=== PATIENT | female | born 1980 | race Caucasian/White ===

== ENCOUNTER 2017-02-24 23:15 | Emergency (ER) | payer SELFPAY ==
[~2017-02-24] VITALS: Ht 167.6 cm; Wt 86.2 kg
[~2017-02-24 23:15] MED LIST: BUSPAR 10MG TAB10 MG PO; DARVOCET-N 1001 EACH PO; EFFEXOR XR150 MG PO; FLEXERIL10 M1 PO; HYDROCODONE1 TABLE1 PO; IBU800 M1 PO; LORTAB 5/500 501 TAB PO; LORTAB 500 MG-71 TAB; NO HOME MEDS; PAXIL20 MG PO; PHENERGAN 25MG.25 M1 PO; PREDNISONE 10MG10 MG PO; PROVERA 10MG TA10 MG PO; SEPTRA DS 800 M1 TAB PO; TRAMADOL 50MG T50 MG PO; VIBRAMYCIN 100100 MG PO; VICODIN 5/500 T1 TAB PO; VICODIN 7.5/501 EACH PO; VISTARIL25 MG PO; VOLTAREN75 MG PO; ZITHROMAX Z-PA250 M2 PO; ZYRTEC 10MG TAB10 MG PO
--- NOTE | 2017-02-24 23:35 | Emergency Room Report ---
History of Present Illness Time Seen by MD Samaniego Presenting Problem in Triage Pt arrived:Walked Presenting Problem:REPORTS PAIN IN CHANDLER LEGS, IS C/O SPOTS ON HER LEGS. REPORTS THAT IT STARTED LAST NIGHT AFTER SHE GOT OFF HER SHIFT AT [facility]. SMALL BLISTERS NOTED. BILATERAL FEET SWOLLEN. 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 N Clinical Suspician of Infection? N Mental Status: 1 - Regular (Normal Baseline) Sepsis Risk:Low Sepsis Risk Have you (or family members/close friends) recently traveled outside the [place]? N If Yes, where/when: Have you had exposure to infectious disease within the past month? N TB? Other? Specify: Comment The patient complains of pain, swelling, rash and lesions on her lower legs and feet bilaterally for 2 days. She has an erythematous patchy rash, most intense around her toes. The only itching she has is around the toes. She has severe pain in her feet when she tries to bear weight. No fever. No new medicines. He took ibuprofen today for her symptoms, otherwise on no medications. 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 She got out of residential 2 weeks ago. She works at [employer], started back after release. New boots bought 2 wks ago. However, states wears same brand of boots at home without problems. She is on her feet all of the time in the past 2 weeks since starting back to work. He did the same type of work in the past without problems. No exposures to liquids or chemicals. ALLERGIES Coded Allergies: cephalexin (Severe, SWELLS THROAT 02/24/17) Fish Containing Products (I-HIVES 02/24/17) orange juice (I-HIVES 02/24/17) codeine (MUSCLE SPASMS 02/24/17) Uncoded Allergies: BANDAIDS (RASH/SWELLING 11/09/11) History Medical History General CAD? No Angina: No [place]: No Hypertension? No Hyperlipidemia? No CHF? No DVT? No PE? No COPD? No Asthma? No Anemia? No GERD? No Gastric ulcers? No GI Bleed? No Hernia? No Thyroid Problems? No Hypothyroidism? No CVA? No Seizures? No Diabetes? No Renal Insuffiency? No End Stage Renal Disease? No UTI? Yes Stones? Yes BPH? No GB Disease: No Nephritic Syndrome? No Asplenia? No Hepatitis? No Sickle Cell Disease? No Arthritis? No Migraines? No Cataracts? No Glaucoma? No MRSA? No HIV? No TB? No Anxiety? No Depression? No Cancer? No More? 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 N/A Family History Family Hx Diabetes No CAD Yes Hypertension Yes Hyperlipidemia Yes Cancer Yes TB No Social History Smoking Hx Smoker: Current Every Day Smoker Tobacco: Yes Type Cigarettes Packs/day < 1 Pack Alcohol Alcohol: No Review of Systems All Other Systems Reviewed and Negative Constitutional denies fever Musculoskeletal joint pain (feet) Skin see HPI, change in color, lesions, rash Physical Exam Vital Signs Vital Signs Date Time Temp Pulse Resp B/P Pulse O2 O2 Flow FiO2 Ox Delivery Rate 02/25 0141 98.1 83 18 127/69 100 / 0008 83 18 127/69 100 / 0007 20 02/24 2317 98.1 87 18 151/93 99 General Appearance normal appearance Ear, Nose, Throat hearing grossly normal, normal ENT inspection Respiratory Status No: respiratory distress. Lung Sounds bilateral: normal breath sounds, lungs clear. Cardiovascular normal exam, regular rate/rhythm, no peripheral edema, no gallop, no JVD, no murmur, no rub, normal peripheral pulses Gastrointestinal normal bowel sounds, normal exam, non tender, no organomegaly Extremities generalized edema of lower extremities from approximately the mid shaft of the lower leg down to the toes, mild. Patchy erythema in the same locations. Most intense around the toes of her LEFT foot., there are some discrete maculopapular lesions as well. One appears to be a tiny 1 mm pustule. otherwise, this does not appear to be a pustular rash., there is a vesicle on the plantar aspect of each foot at the base of the great toe, symmetric in location and approximate size. Each is about 3 cm by 1 cm. The one on the RIGHT foot was incised and drained and cultured.Only clear fluid is present. Neurologic alert, no motor/sensory deficits Skin no petechiae or purpura., no findings to suggest tinea between toes. Medical Decision Making LABS/Meds/Orders Pt receiving controlled substance in ED? Yes Francesco was queried for this patient? Yes Comment [id number] 0 rxs. Results/Orders Laboratory Tests 02/24/172337: Uric Acid 2.8 02/24/172337: Sodium 140, Potassium 3.5, Chloride 105, Carbon Dioxide 27, BUN 14, Creatinine 0.8, Estimated Creat Clear 134, Estimated GFR (MDRD) 82, Glucose 90, Calcium 8.6 , Total Bilirubin 0.4, AST 28, ALT 48, Alkaline Phosphatase 61, Total Protein 7.8, Albumin 4.1, Globulin 3.7 H, Albumin/Globulin Ratio 1.1, WBC 10.2, RBC 4.53, Hgb 13.4, Hct 39.6, MCV 87.4, RDW 13.2, Plt Count 348, MPV 8.1, Gran % 65.3, Gran # 6.6, Lymphocytes % 28.4, Monocytes % 2.8, Eosinophils % 2.9, Basophils % 0.6, Lymphocytes # 2.9, Monocytes # 0.3, Eosinophils # 0.3, Basophils # 0.1, PUBS MCHC 33.9, ESR 12, MCH 29.6 Current Medication Orders Sig/Crystal Start time Last Medication Dose Route Stop Time Status Admin Tramadol HCl 0 .STK-MED ONE 02/25 118 DCr PO Methylprednisolone 125 MG ONCE ONE 02/25 115 DC 02/25 Sodium Succinate IV 02/26 116 0135 Tramadol HCl 1 LEE ONCE ONE 02/25 115 DCr 02/25 PO 02/26 116 0120 Methylprednisolone 0 .STK-MED ONE 02/257 DC Sodium Succinate .ROUTE Ondansetron HCl 0 .STK-MED ONE 02/25 7 DC .ROUTE Morphine Sulfate 0 .STK-MED ONE 02/25 6 DCr .ROUTE Morphine Sulfate 4 MG ONCE ONE 02/24 2345 DCr 02/25 IV 02/24 Ondansetron HCl 4 MG ONCE ONE 02/24 2345 DC 02/25 IV 02/24 Sodium Chloride 10 ML PRN PRN 09/15 2330 DCD IV 02/25 2327 Orders Procedure Date/time Status CULTURE, WOUND 02/24 2346 Active CULTURE, BLOOD 02/24 2346 Active LACTIC ACID 02/24 2346 Active URIC ACID 02/24 2329 Complete IV SALINE LOCK 02/25 2328 Active SED RATE 02/25 2328 Complete CBC WITH AUTO DIFF 02/25 2328 Complete CHEM 12 PROFILE 02/25 2328 Complete Departure Departure Disposition DC Home or Self Care(routine) Clinical Impression Primary Impression: Edema, peripheral Secondary Impressions: Bilateral leg and foot pain, Skin eruption, Vesicles Condition STABLE Additional Instructions You are being provided with a list of physicians available for follow-up of your condition. Please call a physician on this list to arrange a follow-up appointment as soon as possible. Off work 02/25/17 through 02/27/17. Rest and elevate your legs, keep skin clean and dry. Follow-up recheck on 02/27/17, primary care provider or urgent treatment center. Additional instructions for EXTREMITY PAIN: See your physician as soon as possible for further evaluation. Return to an emergency department immediately if you have uncontrollable pain, fever, loss of feeling or inability to move your injured extremity. Prescriptions Current Visit Scripts Methylprednisolone (Medrol Dose Lee) 4 MG PO UD #1 LEE TAKE DIRECTED ON PACKAGING ED Critical Care Critical Care No at 0153
--- NOTE | 2017-02-24 23:35 | Emergency Room Report ---
History of Present Illness Time Seen by MD Samaniego Presenting Problem in Triage Pt arrived:Walked Presenting Problem:REPORTS PAIN IN CHANDLER LEGS, IS C/O SPOTS ON HER LEGS. REPORTS THAT IT STARTED LAST NIGHT AFTER [facility]. SMALL BLISTERS NOTED. BILATERAL FEET SWOLLEN. 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 N Clinical Suspician of Infection? N Mental Status: 1 - Regular (Normal Baseline) Sepsis Risk:Low Sepsis Risk Have you (or family members/close friends) recently traveled outside the [place]? N If Yes, where/when: Have you had exposure to infectious disease within the past month? N TB? Other? Specify: Comment The patient complains of pain, swelling, rash and lesions on her lower legs and feet bilaterally for 2 days. She has an erythematous patchy rash, most intense around her toes. The only itching she has is around the toes. She has severe pain in her feet when she tries to bear weight. No fever. No new medicines. He took ibuprofen today for her symptoms, otherwise on no medications. 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 She got out of [facility]. She works at [employer], started back after release. New boots bought 2 wks ago. However, states wears same brand of boots at home without problems. She is on her feet all of the time in the past 2 weeks since starting back to work. He did the same type of work in the past without problems. No exposures to liquids or chemicals. ALLERGIES Coded Allergies: cephalexin (Severe, SWELLS THROAT 02/24/17) Fish Containing Products (I-HIVES 02/24/17) orange juice (I-HIVES 02/24/17) codeine (MUSCLE SPASMS 02/24/17) Uncoded Allergies: BANDAIDS (RASH/SWELLING 11/09/11) History Medical History General CAD? No Angina: No [place]: No Hypertension? No Hyperlipidemia? No CHF? No DVT? No PE? No COPD? No Asthma? No Anemia? No GERD? No Gastric ulcers? No GI Bleed? No Hernia? No Thyroid Problems? No Hypothyroidism? No CVA? No Seizures? No Diabetes? No Renal Insuffiency? No End Stage Renal Disease? No UTI? Yes Stones? Yes BPH? No GB Disease: No Nephritic Syndrome? No Asplenia? No Hepatitis? No Sickle Cell Disease? No Arthritis? No Migraines? No Cataracts? No Glaucoma? No MRSA? No HIV? No TB? No Anxiety? No Depression? No Cancer? No More? 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 Family History Family Hx Diabetes No CAD Yes Hypertension Yes Hyperlipidemia Yes Cancer Yes TB No Social History Smoking Hx Smoker: Current Every Day Smoker Tobacco: Yes Type Cigarettes Packs/day < 1 Pack Alcohol Alcohol: No Review of Systems All Other Systems Reviewed and Negative Constitutional denies fever Musculoskeletal joint pain (feet) Skin see HPI, change in color, lesions, rash Physical Exam Vital Signs Vital Signs Date Time Temp Pulse Resp B/P Pulse O2 O2 Flow FiO2 Ox Delivery Rate 02/25 0141 98.1 83 18 127/69 100 / 0008 83 18 127/69 100 / 0007 20 02/24 2317 98.1 87 18 151/93 99 General Appearance normal appearance Ear, Nose, Throat hearing grossly normal, normal ENT inspection Respiratory Status No: respiratory distress. Lung Sounds bilateral: normal breath sounds, lungs clear. Cardiovascular normal exam, regular rate/rhythm, no peripheral edema, no gallop, no JVD, no murmur, no rub, normal peripheral pulses Gastrointestinal normal bowel sounds, normal exam, non tender, no organomegaly Extremities generalized edema of lower extremities from approximately the mid shaft of the lower leg down to the toes, mild. Patchy erythema in the same locations. Most intense around the toes of her LEFT foot., there are some discrete maculopapular lesions as well. One appears to be a tiny 1 mm pustule. otherwise, this does not appear to be a pustular rash., there is a vesicle on the plantar aspect of each foot at the base of the great toe, symmetric in location and approximate size. Each is about 3 cm by 1 cm. The one on the RIGHT foot was incised and drained and cultured.Only clear fluid is present. Neurologic alert, no motor/sensory deficits Skin no petechiae or purpura., no findings to suggest tinea between toes. Medical Decision Making LABS/Meds/Orders Pt receiving controlled substance in ED? Yes Francesco was queried for this patient? Yes Comment [id number] 0 rxs. Results/Orders Laboratory Tests 02/24/172337: Uric Acid 2.8 02/24/172337: Sodium 140, Potassium 3.5, Chloride 105, Carbon Dioxide 27, BUN 14, Creatinine 0.8, Estimated Creat Clear 134, Estimated GFR (MDRD) 82, Glucose 90, Calcium 8.6 , Total Bilirubin 0.4, AST 28, ALT 48, Alkaline Phosphatase 61, Total Protein 7.8, Albumin 4.1, Globulin 3.7 H, Albumin/Globulin Ratio 1.1, WBC 10.2, RBC 4.53, Hgb 13.4, Hct 39.6, MCV 87.4, RDW 13.2, Plt Count 348, MPV 8.1, Gran % 65.3, Gran # 6.6, Lymphocytes % 28.4, Monocytes % 2.8, Eosinophils % 2.9, Basophils % 0.6, Lymphocytes # 2.9, Monocytes # 0.3, Eosinophils # 0.3, Basophils # 0.1, PUBS MCHC 33.9, ESR 12, MCH 29.6 Current Medication Orders Sig/Crystal Start time Last Medication Dose Route Stop Time Status Admin Tramadol HCl 0 .STK-MED ONE 02/25 118 DCr PO Methylprednisolone 125 MG ONCE ONE 02/25 115 DC 02/25 Sodium Succinate IV 02/26 116 0135 Tramadol HCl 1 LEE ONCE ONE 02/25 115 DCr 02/25 PO 02/26 116 0120 Methylprednisolone 0 .STK-MED ONE 02/257 DC Sodium Succinate .ROUTE Ondansetron HCl 0 .STK-MED ONE 02/25 7 DC .ROUTE Morphine Sulfate 0 .STK-MED ONE 02/25 6 DCr .ROUTE Morphine Sulfate 4 MG ONCE ONE 02/24 2345 DCr 02/25 IV 02/24 Ondansetron HCl 4 MG ONCE ONE 02/24 2345 DC 02/25 IV 02/24 Sodium Chloride 10 ML PRN PRN 09/15 2330 DCD IV 02/25 2327 Orders Procedure Date/time Status CULTURE, WOUND 02/24 2346 Active CULTURE, BLOOD 02/24 2346 Active LACTIC ACID 02/24 2346 Active URIC ACID 02/24 2329 Complete IV SALINE LOCK 02/25 2328 Active SED RATE 02/25 2328 Complete CBC WITH AUTO DIFF 02/25 2328 Complete CHEM 12 PROFILE 02/25 2328 Complete Departure Departure Disposition DC Home or Self Care(routine) Clinical Impression Primary Impression: Edema, peripheral Secondary Impressions: Bilateral leg and foot pain, Skin eruption, Vesicles Condition STABLE Additional Instructions You are being provided with a list of physicians available for follow-up of your condition. Please call a physician on this list to arrange a follow-up appointment as soon as possible. Off work 02/25/17 through 02/27/17. Rest and elevate your legs, keep skin clean and dry. Follow-up recheck on 02/27/17, primary care provider or urgent treatment center. Additional instructions for EXTREMITY PAIN: See your physician as soon as possible for further evaluation. Return to an emergency department immediately if you have uncontrollable pain, fever, loss of feeling or inability to move your injured extremity. Prescriptions Current Visit Scripts Methylprednisolone (Medrol Dose Lee) 4 MG PO UD #1 LEE TAKE DIRECTED ON PACKAGING ED Critical Care Critical Care No at 0153
[2017-02-24 23:43] LABS: HEMOGLOBIN 13.4 g/dL (12.2-16.2); LYMPH # 2.9 K/mm3 (0.7-4.5); LYMPH % 28.4 % (10-50.0)
[2017-02-25] MEDS ORDERED: MEDROL 4MG. DOSE4 MG PO (01:15)
[2017-02-25 01:41] VITALS: BP 127/69
[2017-03-01] MEDS ORDERED: MECLIZINE 25MG25 MG PO (16:44)
== END 2017-02-25 01:42 | disposition home or self-care (01) ==
LOC: ER 23:15
PROVIDERS: Emergency Medicine
DX: R60.9 Edema, unspecified (principal); R23.8 Other skin changes; F17.210 Nicotine dependence, cigarettes, uncomplicated
CPT/HCPCS: J2405

== ENCOUNTER 2017-03-01 15:36 | Emergency (ER) | payer SELFPAY ==
[~2017-03-01] VITALS: Ht 167.6 cm; Wt 88.9 kg
--- NOTE | 2017-03-01 16:32 | Urgent Treatment Center Report ---
History of Present Issue Date/Time Seen by Provider 03/01/17 5445 Visit Reason Pt arrived:Walked Presenting Problem:PT STATES SHE GOT DIZZY AT WORK LAST NIGHT. WAS SEEN BY [facility] STATES THIS HAS GONE ON FOR 3 DAYS. SEEN AT ER LAST MONDAY. Location if Accident: Onset of symptoms date/time:/ or onset unknown for:MEDICAL HX UNKNOWN Have you (or family members/close friends) recently traveled outside the [place]? N If Yes, where/when: Have you had exposure to infectious disease within the past month? TB? Other? Specify: Patient state that she has allergy problems and has been having problems with her ears. 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 State that they took her to [facility] at [facility] and they wanted her to come and be seen by someone else. ALLERGIES Coded Allergies: cephalexin (Severe, SWELLS THROAT 02/24/17) Fish Containing Products (I-HIVES 02/24/17) orange juice (I-HIVES 02/24/17) codeine (MUSCLE SPASMS 02/24/17) Uncoded Allergies: BANDAIDS (RASH/SWELLING 11/09/11) History Medical History General CAD? No Angina: No [place]: No Hypertension? No Hyperlipidemia? No CHF? No DVT? No PE? No COPD? No Asthma? No Anemia? No GERD? No Gastric ulcers? No GI Bleed? No Hernia? No Thyroid Problems? No Hypothyroidism? No CVA? No Seizures? No Diabetes? No Renal Insuffiency? No UTI? Yes Stones? Yes BPH? No GB Disease: No Nephritic Syndrome? No Asplenia? No Hepatitis? No Sickle Cell Disease? No Arthritis? No Migraines? No Cataracts? No Glaucoma? No MRSA? No HIV? No TB? No Anxiety? No Depression? No Cancer? No More? No Immunization HX DT/Tetanus 5-10 YRS Flu REFUSES Pneumonia NEVER Surgical Hx Previous Surgery?Y T&A D&C X 3 EGD Tubal Ligation WISDOM TEETH PARTIAL HYSTERECTOMY LAPAROSCOPY-REMOVED ADHES IONS L FALLOPIAN TUBE/OVARY Family History Family HX Diabetes No CAD Yes Hypertension Yes Hyperlipidemia Yes Cancer Yes TB No Social History Smoking Hx Smoker: Current Every Day Smoker Tobacco: Yes Type Cigarettes Packs/day < 1 Pack Alcohol Alcohol: No Review of Systems All Other Systems Reviewed and Negative Physical Exam Vital Signs Vital Signs Date Time Temp Pulse Resp B/P Pulse O2 O2 Flow FiO2 Ox Delivery Rate 03/01 1638 97.9 104 20 120/85 99 03/01 1556 97.9 104 20 120/85 99 General Appearance normal appearance, WD/WN, no apparent distress Ear, Nose, Throat fluid noted left ear Respiratory Status Yes: trachea midline, chest symmetrical, non tender chest. No: respiratory distress. 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 No Results/Orders Current Medication Orders Sig/Crystal Start time Last Medication Dose Route Stop Time Status Admin Meclizine HCl 25 MG ONCE ONE 03/01 1615 DC 03/01 PO 03/01 1616 1609 Meclizine HCl 0 .STK-MED ONE 03/01 1609 DC .ROUTE Progress [facility] Progress Notes Comment Patient state that she feel much better after medication and that dizziness is almost gone Departure Departure Time of Disposition 1642 Disposition DC Home or Self Care(routine) Clinical Impression Primary Impression: Vertigo Condition STABLE Patient Instructions DI for Benign Paroxysmal Positional Vertigo, DI for Vertigo Additional Instructions Find familly doctor and follow up for further treatment Becarefull starting new medication Make position changes slowly until medication begans to work well If you continue to have issues or worsen go straight to the ER Discharge Counseling Counseled pt/family regarding diagnosis, medications/RX, home care, follow up needs Prescriptions Current Visit Scripts MECLIZINE HCL (Meclizine 25MG) 25 MG PO BID #60 TABLET at 1644
--- NOTE | 2017-03-01 16:32 | Urgent Treatment Center Report ---
History of Present Issue Date/Time Seen by Provider 03/01/17 3935 Visit Reason Pt arrived:Walked Presenting Problem:PT STATES SHE GOT DIZZY AT WORK LAST NIGHT. WAS SEEN BY [facility] STATES THIS HAS GONE ON FOR 3 DAYS. SEEN AT ER LAST MONDAY. Location if Accident: Onset of symptoms date/time:/ or onset unknown for:MEDICAL HX UNKNOWN Have you (or family members/close friends) recently traveled outside the [place]? N If Yes, where/when: Have you had exposure to infectious disease within the past month? TB? Other? Specify: Patient state that she has allergy problems and has been having problems with her ears. 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 State that they took her to [facility] at [facility] and they wanted her to come and be seen by someone else. ALLERGIES Coded Allergies: cephalexin (Severe, SWELLS THROAT 02/24/17) Fish Containing Products (I-HIVES 02/24/17) orange juice (I-HIVES 02/24/17) codeine (MUSCLE SPASMS 02/24/17) Uncoded Allergies: BANDAIDS (RASH/SWELLING 11/09/11) History Medical History General CAD? No Angina: No [place]: No Hypertension? No Hyperlipidemia? No CHF? No DVT? No PE? No COPD? No Asthma? No Anemia? No GERD? No Gastric ulcers? No GI Bleed? No Hernia? No Thyroid Problems? No Hypothyroidism? No CVA? No Seizures? No Diabetes? No Renal Insuffiency? No UTI? Yes Stones? Yes BPH? No GB Disease: No Nephritic Syndrome? No Asplenia? No Hepatitis? No Sickle Cell Disease? No Arthritis? No Migraines? No Cataracts? No Glaucoma? No MRSA? No HIV? No TB? No Anxiety? No Depression? No Cancer? No More? No Immunization HX DT/Tetanus 5-10 YRS Flu REFUSES Pneumonia NEVER Surgical Hx Previous Surgery?Y T&A D&C X 3 EGD Tubal Ligation WISDOM TEETH PARTIAL HYSTERECTOMY LAPAROSCOPY-REMOVED ADHES IONS L FALLOPIAN TUBE/OVARY Family History Family HX Diabetes No CAD Yes Hypertension Yes Hyperlipidemia Yes Cancer Yes TB No Social History Smoking Hx Smoker: Current Every Day Smoker Tobacco: Yes Type Cigarettes Packs/day < 1 Pack Alcohol Alcohol: No Review of Systems All Other Systems Reviewed and Negative Physical Exam Vital Signs Vital Signs Date Time Temp Pulse Resp B/P Pulse O2 O2 Flow FiO2 Ox Delivery Rate 03/01 1638 97.9 104 20 120/85 99 03/01 1556 97.9 104 20 120/85 99 General Appearance normal appearance, WD/WN, no apparent distress Ear, Nose, Throat fluid noted left ear Respiratory Status Yes: trachea midline, chest symmetrical, non tender chest. No: respiratory distress. 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 No Results/Orders Current Medication Orders Sig/Crystal Start time Last Medication Dose Route Stop Time Status Admin Meclizine HCl 25 MG ONCE ONE 03/01 1615 DC 03/01 PO 03/01 1616 1609 Meclizine HCl 0 .STK-MED ONE 03/01 1609 DC .ROUTE Progress [facility] Progress Notes Comment Patient state that she feel much better after medication and that dizziness is almost gone Departure Departure Time of Disposition 1642 Disposition DC Home or Self Care(routine) Clinical Impression Primary Impression: Vertigo Condition STABLE Patient Instructions DI for Benign Paroxysmal Positional Vertigo, DI for Vertigo Additional Instructions Find familly doctor and follow up for further treatment Becarefull starting new medication Make position changes slowly until medication begans to work well If you continue to have issues or worsen go straight to the ER Discharge Counseling Counseled pt/family regarding diagnosis, medications/RX, home care, follow up needs Prescriptions Current Visit Scripts MECLIZINE HCL (Meclizine 25MG) 25 MG PO BID #60 TABLET at 1644
[2017-03-01 16:38] VITALS: BP 120/85
== END 2017-03-01 16:49 | disposition home or self-care (01) ==
LOC: UTC 15:36
DX: R42 Dizziness and giddiness (principal); F17.210 Nicotine dependence, cigarettes, uncomplicated

== ENCOUNTER 2017-03-24 20:31 | Emergency (ER) | payer MEDICAID ==
[~2017-03-24] VITALS: Ht 167.6 cm; Wt 90.7 kg
[~2017-03-24 20:31] MED LIST changes: +MECLIZINE 25MG25 MG PO; +MEDROL 4MG. DOSE4 MG PO
--- NOTE | 2017-03-24 20:49 | [facility] Report ---
History of Present Issue Date/Time Seen by Provider 03/24/172047 Visit Reason Pt arrived:Walked Presenting Problem:PT C/O N/V/D SINCE YESTERDAY Location if Accident: Onset of symptoms date/time:/ or onset unknown for:MEDICAL HX UNKNOWN Have you (or family members/close friends) recently traveled outside the [place]? N If Yes, where/when: Have you had exposure to infectious disease within the past month? TB? Other? Specify: Patient presents with mother with c/o n/v/d, dizziness, lightheadedness and shakiness that started 1-2 days ago but has worsened today. Denies fever, c/o chills. Denies recent exposure to known ill persons. Has been drinking Gatorade. Source patient, family Exam Limitations no limitations ALLERGIES Coded Allergies: cephalexin (Severe, SWELLS THROAT 02/24/17) Fish Containing Products (I-HIVES 02/24/17) orange juice (I-HIVES 02/24/17) codeine (MUSCLE SPASMS 02/24/17) Uncoded Allergies: BANDAIDS (RASH/SWELLING 11/09/11) Home Medications Active Scripts MECLIZINE HCL (Meclizine 25MG) 25 MG PO BID #60 TABLET Prov: 03/01/17 History Medical History General CAD? No Angina: No OR: No Hypertension? No Hyperlipidemia? No CHF? No DVT? No PE? No COPD? No Asthma? No Anemia? No GERD? No Gastric ulcers? No GI Bleed? No Hernia? No Thyroid Problems? No Hypothyroidism? No CVA? No Seizures? No Diabetes? No Renal Insuffiency? No UTI? Yes Stones? Yes BPH? No GB Disease: No Nephritic Syndrome? No Asplenia? No Hepatitis? No Sickle Cell Disease? No Arthritis? No Migraines? No Cataracts? No Glaucoma? No MRSA? No HIV? No TB? No Anxiety? No Depression? No Cancer? No More? No Immunization HX DT/Tetanus 5-10 YRS Flu REFUSES Pneumonia NEVER Surgical Hx Previous Surgery?Y T&A D&C X 3 EGD Tubal Ligation WISDOM TEETH PARTIAL HYSTERECTOMY LAPAROSCOPY-REMOVED ADHES IONS L FALLOPIAN TUBE/OVARY Family History Family HX Diabetes No CAD Yes Hypertension Yes Hyperlipidemia Yes Cancer Yes TB No Social History Smoking Hx Smoker: Current Every Day Smoker Tobacco: Yes Type Cigarettes Packs/day < 1 Pack Alcohol Alcohol: No Review of Systems All Other Systems Reviewed and Negative Constitutional chills, denies fever, malaise, weakness Respiratory denies cough, denies shortness of breath, denies wheezing Cardiovascular denies chest pain, denies palpitations Gastrointestinal abdominal pain, diarrhea, nausea, vomiting Skin denies rash Physical Exam Vital Signs Vital Signs Date Time Temp Pulse Resp B/P Pulse O2 O2 Flow FiO2 Ox Delivery Rate 03/24 2130 97.9 82 18 122/77 100 03/24 2042 97.9 82 18 122/77 100 General Appearance normal appearance, WD/WN Neck non-tender, supple, full range of motion Respiratory Status Yes: chest symmetrical. No: respiratory distress. Lung Sounds bilateral: normal breath sounds. Cardiovascular normal exam, regular rate/rhythm, no peripheral edema, no murmur Gastrointestinal soft, abnormal bowel sounds (hypoactive), no guarding, no rebound, tenderness (generalized) Neurologic alert, normal exam, no motor/sensory deficits, oriented x 3 Mental status normal mood/affect Skin intact, normal color, warm/dry (pale) Medical Decision Making LABS/Meds/Orders Pt receiving controlled substance in ED? No Results/Orders Laboratory Tests 03/24/172126: POC Glucose 85 Current Medication Orders Sig/Crystal Start time Last Medication Dose Route Stop Time Status Admin Promethazine HCl 25 MG ONCE ONE 03/24 2130 DC 03/24 IM 03/24 Sodium Chloride 25 ML ONCE ONE 03/24 2130 DCD IV 03/24 2144 Promethazine HCl 0 .STK-MED ONE 03/24 2122 DC .ROUTE Orders Procedure Date/time Status FINGERSTICK BLOOD SUGAR 03/24 2127 Complete FSBS REQUEST BY CARE AREA 03/24 2127 Active Departure Departure Time of Disposition 2115 Disposition DC Home or Self Care(routine) Clinical Impression Primary Impression: Gastroenteritis Condition STABLE Patient Instructions DI for Viral Gastroenteritis -- Adult Additional Instructions Increase fluid intake and rest. Clear liquids for the next 24 hours then advance diet as tolerated. Take medication as directed. If symptoms persist or worsen follow-up with PCP for further evaluation. Patient verbalizes understanding. Discharge Counseling Counseled pt/family regarding diagnosis, test results, medications/RX, home care, follow up needs Prescriptions Current Visit Scripts PROMETHAZINE HCL (Promethazine 25mg Tab) 25 MG PO Q6HP PRN NAUSEA AND VOMITING #20 TAB at 9835
[2017-03-24] MEDS ORDERED: PROMETHAZINE HC25 M1 PO (21:20)
[2017-03-24 21:30] VITALS: BP 122/77
--- OUTSIDE RECORDS SUMMARY | 2017-03-25 22:15 | External Medical Summary Rpt | CCD ---
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 Name Role Phone A Supriya PAINTER MD PSC, A Unavailable Unavailable Supriya PAINTER MD PSC [facility] Unavailable Unavailable LABORATORIES, [facility] Unavailable Unavailable INC, [facility] Unavailable Unavailable SERVICE, [facility] Unavailable Unavailable SERVICE, [facility] CELLAROSI - YORBA Unavailable Unavailable PAT, CELLAROSI - YORBA PAT CELLAROSI - YORBA Unavailable Unavailable PAT, CELLAROSI - YORBA PAT CHIPPS DAVIAN & Unavailable Unavailable DUBILIER, [facility] DUBILIER PEDRO STEFAN, Unavailable Unavailable PEDRO STEFAN [facility], Unavailable Unavailable [facility] Unavailable [place]available [place], [facility] [place] [facility] Un[place] [facility] [facility] Unavailable Unavailable [facility] Unavailable Unavailable IESHA KAVYA, IESHA Unavailable Unavailable KAVYA CORY KAVYA, CORY KAVYA Unavailable Unavailable TURCIOS RENE, TURCIOS RENE Unavailable Unavailable TURCIOS ERNE, TURCIOS RENE Unavailable Unavailable HARPEL JADEN, HARPEL Unavailable Unavailable JADEN HARPEL JADEN, HARPEL Unavailable Unavailable JADEN [facility], [facility] Unavailable Unavailable HOSPITAL P, [facility] ENCARNACION ASHLEIGH, [facility]ARNACION ASHLEIGH Unavailable Unavailable [facility] Unavailable Unavailable [facility], [facility] WILMA MICHELLE CHA Unavailable Unavailable [facility] Un[facility] Unavailable [facility], [facility] CLARA VALLEJO Unavailable Unavailable [facility] Unavailable Unavailable SERVICES, [facility] Octavio Diaz MD, Unavailable Unavailable Octavio FERNANDEZ, Unavailable Unavailable NOLAN MOREJON NICOLÁS, JEAN-PIERRE Unavailable Unavailable NICOLÁS JEAN-PIERRE, DARIEN P, Unavailable Unavailable JEAN-PIERRE, DARIEN P GOYAL JIM, GOYAL JIM Unavailable Unavailable [facility] Unavailable Unavailable LAB[facility] TERRIE WILL, TERRIE WILL Unavailable Unavailable SAHRA TAIWO, SAHRA Unavailable Unavailable TAIWO SAHRA TAIWO, SAHRA Unavailable Unavailable TAIWO SAHRA, IRINA, Unavailable Unavailable SAHRA, IRINA [facility] Unavailable Unavailable [id number] # [id number], [facility] [id number] # [id number] SMALL, DAVE Navarro, SMALL, Unavailable Unavailable DAVE T [facility] # Unavailable Unavailable [id number], [facility] # [id number] WEHRMAN III JIM, Unavailable Unavailable WEHRMAN III JIM WEHRMAN III JIM, Unavailable Unavailable WEHRMAN III JIM ARNOLDO AARON, Unavailable Unavailable ARNOLDO AARON CHR, LORI Unavailable Unavailable CHR Ellie PAINTER WRIGHT, Unavailable Unavailable Ellie C Purpose Continuity of Care Document - 07-31-2007 through 2016 Problems Code Diagnosis DOS Provider Status 462 [id number] ACUTE 09-06-2012 [facility] 51176 PAIN IN 12-05-2011 [facility] JOINT, MEDICAL ANKLE AND IMAGING ASS FOOT 24739 SPRAIN AND 12-05-2011 [facility] STR[facility] OF EMERGENCY UNSPECIFIED SERVICES SITE OF FOOT 86439 OTHER FOOT 12-05-2011 [facility] SPRAIN AND [facility] STRAIN INC 9599 INJURY 12-05-2011 [facility] OTHER AND MEDICAL UNSPECIFIED IMAGING ASS UNSPECIFIED SITE 70549 UNSPECIFIED 12-04-2011 [facility] SITE OF ANKLE SPRAIN AND STRAIN 72656 OTHER ACUTE 11-27-2011 CELLAROSI - YORBA PAT POSTOPERATI VE PAIN 5680 PERITONEAL 11-27-2011 CELLAROSI - ADHESIONS YORBA PAT 49572 ABDOMINAL 11-27-2011 CELLAROSI - PAIN RIGHT YORBA PAT LOWER QUADRANT 6259 UNSPEC 11-18-2011 HARPEL JADEN SYMPTOM ASSOC W/FEMALE GENITAL ORGANS V7231 ROUTINE 11-18-2011 HARPEL JADEN GYNECOLOGIC AL EXAMINATION 6141 CHRONIC 11-10-2011 PATHOLOGY & SALPINGITIS CYTOLOGY AND LAB OOPHORITIS 6146 PELVIC 11-10-2011 PATHOLOGY & PERITONEAL CYTOLOGY ADHESIONS, LAB FEMALE 6202 OTHER AND 11-10-2011 [facility] UNSPECIFIED [facility] OVARIAN INC CYST 6256 FEMALE 11-04-2011 [facility] STRESS [facility] INCONTINENC INC E 6258 OTH SPEC 11-01-2011 HARPEL JADEN SYMPTOM ASSOC W/FEMALE GENITAL ORGANS 42226 UNSPECIFIED 09-23-2011 SAHRA TAIWO OTALGIA 6823 CELLULITIS 08-15-2011 [facility] AND ABSCESS EMERGENCY OF UPPER SERVICES ARM AND FOREARM 87359 CONTUSION 08-08-2011 WEHRMAN III OF BUTTOCK JIM 60778 OTHER 08-08-2011 [facility] INJURY OF MEDICAL OTHER SITES IMAGING ASS OF TRUNK E8889 UNSPECIFIED 08-08-2011 [facility] FALL [facility]ICAL [facility] 60393 ABDOMINAL 06-28-2011 TURCIOS RENE PAIN, UNSPECIFIED SITE 65353 ABDOMINAL 06-28-2011 [facility] PAIN, LEFT [facility] LOWER INC QUADRANT V8801 ACQUIRED 06-14-2011 [facility] ABSENCE OF MEDICAL BOTH CERVIX IMAGING ASS AND UTERUS 46407 PAIN IN 06-09-2011 [facility] JOINT, SHOULDER REGION 9221 CONTUSION 06-09-2011 LORI CHR OF CHEST WALL 05370 CONTUSION 06-09-2011 [facility] OF SHOULDER [facility] REGION INC 42741 UNSPECIFIED 02-16-2011 [facility] VIRAL [facility]Y INFECTION SERVICES IN CCE & UNS SITE 4659 ACUTE URIS 02-16-2011 [facility] OF EMERGENCY UNSPECIFIED SERVICES SITE 43454 GALLSTONE 01-31-2011 [facility] ILEUS PHYSICIAN GROUP [facility] 79200 CALCU 01-31-2011 [facility] GALLBLADD PHYSICIAN W/O MENTION GROUP [facility] CHOLECYST/O BST 83368 UNSPECIFIED 01-31-2011 [facility] VAGINITIS PHYSICIAN AND GROUP [facility] VULVOVAGINI TIS 6262 EXCESSIVE 01-10-2011 [facility] OR FREQUENT PHYSICIAN GROUP [facility] MENSTRUATIO N 6160 CERVICITIS 12-31-2010 CHIPPS AND DAVIAN & ENDOCERVICI DUBILIER TIS 6268 OTH D/O 12-31-2010 [facility] MENSTRUATIO MEM H[facility] N&OTH ABN INC BLEED FE GNT TRACT 9982 ACCIDENTAL 12-31-2010 [facility] PUNCTURE/LA [facility] CERATION INC DURING PROC NEC 02612 UNS ADVRS 12-30-2010 A Supriya PAINTER EFF OTH RX PSC MEDICINAL&B IOLOGICAL SBSTNC E9342 ANTICOAG 12-30-2010 A Supriya PAINTER CAUSING PSC ADVERSE EFFECT THERAPEUTIC USE 88223 GENERALIZED 12-22-2010 A Supriya PAINTER ANXIETY PSC DISORDER V641 SURG/OTH 12-20-2010 [facility] PROC NOT MEM H[facility] DONE INC BECAUSE CONTRAINDIC ATION 2180 SUBMUCOUS 11-29-2010 [facility] LEIOMYOMA PHYSICIAN OF UTERUS GROUP [facility] 31279 POISONING 11-25-2010 [facility] BY OTHER [facility] P ANTS 9695 POISONING 11-25-2010 [facility] BY OTHER [facility] P RS 3879 POISONING 11-25-2010 [facility] UNSPECIFIED [facility] SERVICE DRUG/MEDICI NAL SUBSTANCE 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 [facility] HISTORY OF PHYSICIAN CERVICAL GROUP [facility] DYSPLASIA 05384 CORNEAL 10-08-2010 [facility]ESS [facility] 8449 SPRAIN&STRA 07-10-2010 [facility] IN OF EMERGENCY UNSPECIFIED SERVICES SITE OF KNEE&LEG 9597 INJURY 07-10-2010 [facility] OTHER&UNSPE MEDICAL CIFIED KNEE IMAGING ASS LEG ANKLE&FOOT 7242 LUMBAGO 05-04-2010 [facility] 8472 LUMBAR 05-04-2010 [facility] SPRAIN AND EMERGENCY STRAIN SERVICES 9392 FOREIGN 04-01-2010 [facility] BODY IN EMERGENCY VULVA AND SERVICES VAGINA 18888 CLOSED 12-31-2009 [facility] FRACTURE OF MEDICAL METATARSAL IMAGING ASS BONE E9278 OTH 12-20-2009 [facility] OVEREXERT&S EMERGENCY TRENUOUS&RE SERVICES PETITIVE MVMNTS/LOAD S 7336 TIETZES 03-22-2008 RAM[facility] DISEASE [facility] 48587 CHEST PAIN 03-22-2008 [facility] UNSPECIFIED [facility] 34914 PRECORDIAL 03-22-2008 [facility] PAIN [facility] 4619 ACUTE 10-30-2007 Ellie PAINTER SINUSITISMD PSC UNSPECIFIED 3829 UNSPECIFIED 07-31-2007 [facility] PROF SERV 50704 VOMITING 07-31-2007 [facility] PROF SERV 43547 DIARRHEA 07-31-2007 [facility] PROF SERV Allergies, Adverse Reactions, Alerts Type Allergy to substance Drug Allergy Adverse Reaction to Substance Substance Reaction Severity BANDAIDS RASH/SWELLING Unknown Cephalexin T-ULTFRZ-RPKA/THROAT Severe Codeine MUSCLE SPASM Intermediate Elrama Juice I-HIVES Intermediate Medications Na ND Rx Da Fi Fi Am Da Di Ph RX Ph St me C No te ll ll ou ys ag ar # ys at rm s nt no ma ic us Or Da si cy ia de te s n re d TR 00 12 12 20 2 RI 91 GR Ac AM -2 -2 .0 TE 47 AY ti AD 30 9- 9- 00 26 ve OL 05 20 20 AI RO 80 11 11 D BE HC 1 PH RT L AR B 50 MA CY MG 03 TA 93 BL 8 ET # 03 93 EF 00 08 09 1 30 30 EA 23 RI Ac FE 00 -2 -[address] 85 SH ti XO 80 9- 7- 00 SI 79 ER ve R 83 20 20 DE XR 62 11 11 RI 2 PH CH 15 AR AR 0 MA D MG CY CA OF PS UL CY E NT HI AN A EF 00 08 08 1 30 30 EA 23 RI Ac FE 00 -2 -[address] 85 SH ti XO 80 9 9- 00 SI 79 ER ve R 83 20 20 DE XR 62 11 11 RI 2 PH CH 15 AR AR 0 MA D MG CY CA OF PS UL CY E NT HI AN A BU 00 08 08 1 90 30 EA 23 RI Ac SP 37 -2 -[address] 85 SH ti IR 81 9 9 00 SI 80 ER ve ON 14 20 20 DE E 00 11 11 RI HC 1 PH CH L AR AR 5 MA D MG CY TA OF BL ET CY NT HI AN A ME 50 08 08 0 21 7 EA 23 DOSS Ac TR 11 -2 -[address] 80 RP ti ON 10 2 4- 00 SI 29 EL ve ID 33 20 20 DE AZ 30 11 11 GE OL 1 PH RA E AR LD 25 MA R 0 CY MG OF TA BL CY ET NT HI AN A EF 00 07 08 1 30 30 EA 23 RI Ac FE 00 -1 -[address] 28 SH ti XO 80 3 9- 00 SI 32 ER ve R 83 20 20 DE XR 32 11 11 RI 2 PH CH 75 AR AR MA D MG CY CA OF PS UL CY E NT HI AN A HY 00 07 07 0 40 10 [place] [address] 40 -2 -2 .0 L- 20 RP ti OM 63 3- 3- 00 MA 26 EL ve OR 24 20 20 RT 5 PH 40 11 11 GE ON 1 PH RA E AR LD 4 MA R MG CY # TA BL 10 ET 05 91 NI 00 07 07 0 20 10 WA 71 DOSS Ac TR 37 -2 -2 .0 L- 28 RP ti OF 83 3- 3- 00 MA 12 EL ve UR 42 20 20 RT 9 AN 20 11 11 GE TO 1 PH RA IN AR LD MA R MO CY NO # -M CR 10 05 10 91 0 MG AL 00 07 07 0 2. 2 WA 44 DOSS Ac OK 37 -1 -2 00 L- 95 RP ti AZ 84 1- 1- 0 MA 09 EL ve OL 00 20 20 RT 7 AM 50 11 11 GE 1 1 PH RA AR LD MG MA R CY TA # BL ET 10 05 91 EF 00 07 07 1 30 30 EA 23 RI Ac FE 00 -1 -[address] 28 SH ti XO 80 3- 3- 00 SI 32 ER ve R 83 20 20 DE XR 32 11 11 RI 2 PH CH 75 AR AR MA D MG CY CA OF PS UL CY E NT HI AN A CE 45 05 05 5 30 30 EA 22 MO Ac TI 80 -2 -[address] 70 SE ti RI 20 7- 7- 00 SI 65 S ve ZI [address] NE 98 11 11 EP 7 PH HE HC AR N L MA A 10 CY MG OF TA CY BL NT ET HI AN A FL 00 05 05 5 16 30 EA 22 MO Ac UT 05 -2 -[address] 70 SE ti IC 43 7- 7- 00 SI 66 S ve [address] ON 09 11 11 EP E 9 PH HE OK AR N OP MA A CY 50 OF MC G CY SP NT RA HI Y AN A PA 68 03 05 1 30 30 WA 71 RI Ac RO 38 -3 -0 .0 L- 13 SH ti XE 20 1- 9- 00 MA 41 ER ve TI 00 20 20 RT 7 NE 10 11 11 RI 6 PH CH HC AR AR L MA D 40 CY # MG 10 TA 05 BL 91 ET GE 61 04 04 0 5. 25 WA 71 HI Ac NT 31 -2 -2 00 L- 17 NE ti AM 40 9- 9- 0 MA 24 S ve IC 63 20 20 RT 1 BR IN 30 11 11 ET 3 5 PH T AR A MG MA /M CY L # EY E 10 DR 05 OP 91 S TE 00 03 03 1 30 30 WA 44 RI Ac MA 37 -3 -3 .0 L- 92 SH ti ZE 84 1- 1- 00 MA 74 ER ve PA 01 20 20 RT 3 M 00 11 11 RI 15 1 PH CH AR AR MG MA D CY CA # PS UL 10 E 05 91 PA 68 03 03 1 30 30 WA 71 RI Ac RO 38 -3 -3 .0 L- 13 SH ti XE 20 1- 1- 00 MA 41 ER ve TI 00 20 20 RT 7 NE 10 11 11 RI 6 PH CH HC AR AR L MA D 40 CY # MG 10 TA 05 BL 91 ET 00 03 03 1 60 10 WA 71 RI Ac 18 -3 -3 .0 L- 13 SH ti 50 1- 1- 00 MA 41 ER ve 61 20 20 RT 8 30 11 11 RI 1 PH CH AR AR MA D CY # 10 05 91 PA 54 02 03 1 30 30 WA 71 RI Ac RO 45 -1 -2 .0 L- 07 SH ti XE 80 7- 6- 00 MA 32 ER ve TI 98 20 20 RT 2 NE 91 11 11 RI 0 PH CH HC AR AR L MA D 20 CY # MG 10 TA 05 BL 91 ET PA 54 02 02 1 30 30 WA 71 RI Ac RO 45 -1 -1 .0 L- 07 SH ti XE 80 7- 7- 00 MA 32 ER ve TI 98 20 20 RT 2 NE 91 11 11 RI 0 PH CH HC AR AR L MA D 20 CY # MG 10 TA 05 BL 91 ET 00 02 02 1 30 5 WA 71 RI Ac 18 -1 -1 .0 L- 07 SH ti 50 7- 7- 00 MA 32 ER ve 61 20 20 RT 3 30 11 11 RI 1 PH CH AR AR MA D CY # 10 05 91 TR 00 01 02 0 15 5 WA 44 GA Ac AM 37 -2 -0 .0 L- 91 IN ti AD 84 9- 2- 00 MA 44 EY ve OL 15 20 20 RT 3 10 11 11 AL HC 1 PH CH L AR AE 50 MA L CY S MG # TA 10 BL 05 ET 91 DI 16 01 02 0 14 7 WA 71 GA Ac CL 57 -2 -0 .0 L- 05 IN ti OF 10 9- 2- 00 MA 09 EY ve EN 20 20 20 RT 5 AC 11 11 11 AL 0 PH CH SO AR AE D MA L EC CY S # 75 10 MG 05 91 TA B 00 07 07 0 30 7 WA 44 MO Ac 40 -2 -2 .0 L- 87 SE ti 60 0- 0- 00 MA 09 S ve 35 [address] 70 10 10 EP 5 PH HE AR N MA A CY # 10 05 91 00 07 07 0 30 7 WA 44 MO Ac 40 -1 -1 .0 L- 86 SE ti 60 3- 3- 00 MA 93 S ve 35 [address] 70 10 10 EP 5 PH HE AR N MA A CY # 10 05 91 00 10 10 00 12 3 EA 99 No Ac 59 -1 -[address] 83 t ti 10 1- 3- 00 SI 18 Av ve 34 20 20 DE ai 90 08 08 la 1 PH bl AR e MA CY OF CY NT HI AN A 00 05 06 00 30 30 EA 98 No Ac 03 -2 -[address] 06 t ti 70 0- 5- 00 SI 88 Av ve 24 20 20 DE ai 13 08 08 la 0 PH bl AR e MA CY OF CY NT HI AN A CE 45 05 06 00 30 30 EA 98 No Ac TI 80 -2 -[address] 06 t ti RI 20 0- 5- 00 SI 90 Av ve ZI 91 20 20 DE ai NE 98 08 08 la 7 PH bl HC AR e L MA 10 CY MG OF CY TA NT BL HI ET AN A NA 00 05 06 00 17 30 EA 98 No Ac SO 08 -2 -[address] 06 t ti NE 51 0- 5- 00 SI 89 Av ve X 28 20 20 DE ai 50 80 08 08 la 1 PH bl MC AR e G MA NA CY SA L OF SP CY RA NT Y HI AN A 63 05 06 00 20 10 EA 98 No Ac 30 -2 -[address] 06 t ti 40 0- 5- 00 SI 87 Av ve 76 20 20 DE ai 32 08 08 la 0 PH bl AR e MA CY OF CY NT HI AN A Vital Signs 09-06-2012 13:27 Name Value Interpretat Reference Comment ion Range BP 74 mm[Hg] Diastolic BP Systolic 136 mm[Hg] Heart 94 /min Rate/Pulse O2% 97 % Respiratory 20 /min Rate Procedures Procedure DOS Code Location Performer Comment RADEX 78609 [facility] PEDRO FOOT 2 MEDICAL STEFAN COMPLETE IMAGING MINIMUM 3 ASS VIEWS CRTCHS E0114 [facility] UNDARM 2 OTH THAN WOOD PAIR PAD TIP&HNDGR IP SURGICAL L3260 [facility] BOOT/SHOE 2 EACH IADNA 84476 BIO BIO CHLAMYDIA 2 REFERNCE REFERNCE LABORATOR LABORATOR TRACHOMAT IES IES IS AMPLIFIED PROBE TQ CULTURE 82810 [facility] HARPEL CHLAMYDIA 2 JADEN JADEN ANY SOURCE CYTP C/V 84534 BIO BIO AUTO THIN 2 REFERNCE REFERNCE LYR LABORATOR LABORATOR PREPJ SCR IES IES MNL RESCR PHYS URINLS 70785 [facility] HARPEL DIP 2 JADEN JADEN STICK/TAB LET REAGNT NON-AUTO MICRSCPY IADNA 89086 [facility] HARPEL NEISSERIA 2 JADEN JADEN GONORRHOE AE DIRECT PROBE TQ IADNA 31646 BIO BIO NEISSERIA 2 REFERNCE REFERNCE LABORATOR LABORATOR GONORRHOE IES IES AE AMPLIFIED PROBE TQ IADNA NOS 18909 BIO BIO 2 REFERNCE REFERNCE AMPLIFIED LABORATOR LABORATOR PROBE [place] [address] PATHOLOGY CORY KAVYA SURG 2 & PATHOLOGY CYTOLOGY LAB GROSS&KAVYA ROSCOPIC EXAM UNLISTED 94761 [facility] LAPAROSCO 2 [facility] PIC PX INC INC ABD PERTONEUM & OMENTUM BLOOD 03026 [facility] COUNT 2 [facility] HEMOGLOBI INC INC N ANESTHESI 44507 [facility] TERRIE WILL A 2 ANESTH INTRAPERI OF THE TONEAL BLUE LOWER ABD W/LAPS NOS LAPAROSCO 27239 [facility] PY W/RMVL 2 [facility] ADNEXAL INC INC STRUCTURE S BLOOD 36271 [facility] COUNT 2 MEM [facility]OS[facility] HEMATOCRI INC INC T LAPAROSCO 87547 [facility] HARPEL PY 2 JADEN JADEN W/LYSIS OF ADHESIONS BLOOD 25301 [facility] COUNT 2 [facility] COMPLETE INC INC AUTO&AUTO DIFRNTL WBC URNLS DIP 12012 [facility] 2 [facility] STICK/TAB INC [place] [address] [facility] TRANSVAGI 2 [facility] NAL INC INC IAADI 86599 [facility] INFLUENZA 2 [facility] B VIRUS INC INC IAADI 19738 [facility] INFFLUENZ 2 [facility] [place] [address] [facility] STREPTOCO 2 [facility] CCUS INC INC GROUP A SUSCEPTIB 11484 [facility] ILITY 2 [facility] STUDY INC INC ANTIMICRO BIAL DISK METHOD CUL BACT 47585 [facility] XCPT 2 [facility] URINE INC INC BLOOD/STO OL AEROBIC ISOL INCISION 98834 SARI JULIAN & 2 EMERGENCY KAVYA DRAINAGE SERVICES ABSCESS COMPLICAT ED/MULTIP LE CUL BACT 85736 [facility] AEROBIC 2 [facility] ADDL INC INC METHS DEFINITIV E EA ISOL RADEX 60619 [facility] SACRUM & 2 [facility] COCCYX INC INC MINIMUM 2 VIEWS BLOOD 51662 [facility] COUNT 2 [facility] COMPLETE INC INC AUTO&AUTO DIFRNTL WBC ANESTHESI 65735 COMMUNITY GOYAL JIM A 2 ANESTH INTRAPERI OF THE TONEAL BLUE LOWER ABD W/LAPS NOS LAPAROSCO 82185 [facility] HARPEL PY 2 JADEN JADEN W/LYSIS OF ADHESIONS CULTURE 22992 [facility] BCT 2 [facility] ISOL&PRSM INC INC PTV ID ISOLATE EA URINE SUSCEPTIB 44592 [facility] LTY STDY 2 [facility] ANTIMICRB INC INC IAL MICRO/AGA R DILUTJ CULTURE 90740 [facility] BACTERIAL 2 [facility] INC INC QUANTTATI VE COLONY COUNT URINE URNLS DIP 67277 [facility] 2 [facility] STICK/TAB INC INC LET REAGENT AUTO MICROSCOP Y BLOOD 12424 [facility] COUNT 2 [facility] COMPLETE INC INC AUTO&AUTO DIFRNTL WBC URNLS DIP 51952 [facility]ERT 2 [facility] STICK/TAB INC INC LET REAGENT AUTO MICROSCOP Y CULTURE 31442 [facility] BACTERIAL 2 [facility] INC INC QUANTTATI VE COLONY COUNT URINE URINE 92599 [facility] TALBERT 2 [facility] TEST INC INC VISUAL COLOR CMPRSN METHS SUSCEPTIB 78044 [facility] TAL[facility]ERT LTY STDY 2 MEM [facility]OS[facility]OS[facility] ANTIMICRB INC INC IAL MICRO/AGA R DILUTJ CULTURE 15009 [facility] BCT 2 [facility] ISOL&PRSM INC INC PTV ID ISOLATE EA URINE AMB A0427 [facility] SERVICE 2 AMBULANCE AMBULANCE ALS SERVICE SERVICE EMERGENCY TRANSPORT LEVEL 1 GROUND A0425 [facility] MILEAGE 2 AMBULANCE AMBULANCE PER SERVICE SERVICE STATUTE MILE 33345 [facility] TRANSVAGI 2 [facility] NAL INC INC RADIOLOGI 95417 [facility] C EXAM 1 [facility] CHEST 2 INC INC VIEWS FRONTAL&L ATERAL RADEX 64876 [facility] CLAVICLE 1 [facility] COMPLETE INC INC BLOOD 45208 [facility] COUNT 1 [facility]OS[facility] HEMOGLOBI INC INC N BLOOD 32577 [facility] COUNT 1 MEM [facility]OS[facility] HEMATOCRI INC INC T OBSERVATI 16809 [facility] ON CARE 1 PHYSICIAN JADEN DISCHARGE GROUP [facility] OBSERVATI 1 [facility] ON INC INC SERVICE [facility] G0378 [facility] OBSERVATI 1 [facility] [place] [address] [facility] SURG 1 DAVIAN & PATHOLOGY DUBILIER GROSS&KAVYA ROSCOPIC EXAM SUTURE OF 5781 G[facility]I TALBERT 1 MEM [facility]OS[facility] LACERATIO INC INC N OF BLADDER OTHER 6859 [facility] VAGINAL 1 [facility] HYSTERECT INC INC PURA ANESTHESI 19797 [facility] A VAGINAL 1 ANESTH OF THE HYSTERECT BLUE PURA INCL BIOPSY VAGINAL 76241 [facility] HYSTERECT 1 [facility] PURA INC INC UTERUS 250 GM/< CHEMOTX 45140 [facility] ADMN 1 [facility] SUBQ/IM INC INC NON-HORMO NAL ANTI-EMERITA TX PROC G0238 [facility] IMPRV 1 [facility] RESP INC INC FUNCT NOT G0237 FCE-FCE 15MIN URNLS DIP 84041 [facility]ERT 1 [facility] STICK/TAB INC INC LET REAGENT AUTO MICROSCOP Y CULTURE 72553 G[facility] BACTERIAL 1 [facility] H[facility]OS[facility] INC INC QUANTTATI VE COLONY COUNT URINE SBSQ 52497 [facility] 1 INOCENCIO JARAMILLO TAIWO CARE/DAY PSC 15 [place] [address] [facility] INFUSION 1 [facility] THERAPY/P INC INC ROPHYLAXI S /DX 1ST TO 1 HR GLUC BLD 78806 [facility] GLUC MNTR 1 [facility] DEV INC INC CLEARED FDA SPEC HOME USE BLOOD 88569 GALI WILLINGHAMON COUNT 1 [facility] COMPLETE INC INC AUTO&AUTO DIFRNTL WBC URNLS DIP 28047 [facility]ERT 1 [facility] STICK/TAB INC INC LET REAGENT AUTO MICROSCOP Y URINE 81453 [facility] 1 [facility] TEST INC INC VISUAL COLOR CMPRSN METHS CYTP 55263 NATALIE ESTRADA SLCTV 1 LABORATOR LABORATOR CELL IES INC IES INC ENHANCEME NT INTERPJ XCPT C/[place] [address] [facility] HARPEL TRANSVAGI 1 PHYSICIAN JADEN [facility] PCC SMR PRIM 54809 [facility] HARPEL SRC WET 1 PHYSICIAN JADEN [facility] NFCT AGT PCC ECG 09408 GALI FRANCISCO ROUTINE 1 [facility] W/LEAST P 12 LDS I&R ONLY AMB A0427 ISABEL HALL SERVICE 1 AMBULANCE AMBULANCE ALS SERVICE SERVICE EMERGENCY TRANSPORT LEVEL 1 ALS A0398 ISABEL [facility] ROUTINE 1 AMBULANCE AMBULANCE DISPOSABL SERVICE SERVICE E SUPPLIES GROUND A0425 ISABEL HALL MILEAGE 1 AMBULANCE AMBULANCE PER SERVICE SERVICE STATUTE MILE BLOOD 69201 [facility] TALBETR COUNT 1 MEM H[facility] COMPLETE INC INC AUTO&AUTO DIFRNTL WBC RADIOLOGI 44096 [facility] C 1 [facility] EXAMINATI INC INC ON KNEE 3 VIEWS RADEX 95942 [facility] SPINE 0 [facility] LUMBOSACR INC INC AL MINIMUM 4 VIEWS URNLS DIP 34975 [facility] 0 [facility] STICK/TAB INC INC LET REAGENT AUTO MICROSCOP Y URNLS DIP 85191 [facility] 0 [facility] STICK/TAB INC INC LET REAGENT AUTO MICROSCOP Y BLOOD 80002 [facility] COUNT 0 [facility] COMPLETE INC INC AUTO&AUTO DIFRNTL WBC SUSCEPTIB 90933 [facility] LTY STDY 0 [facility] ANTIMICRB INC INC IAL MICRO/AGA R DILUTJ CULTURE 02386 [facility] BACTERIAL 0 [facility] BLOOD INC INC AEROBIC W/ID ISOLATES URINE 87511 GALI TALBERT 0 [facility] TEST INC INC VISUAL COLOR CMPRSN METHS SEDIMENTA 13030 GALI TALBERT TION RATE 0 [facility] RBC INC INC NON-AUTOM ATED SMR PRIM 60186 GALI TALBERT SRC WET 0 [facility] MOUNT INC INC NFCT AGT CUL BACT 93046 GALI GALI AEROBIC 0 [facility] ADDL INC INC METHS DEFINITIV E EA ISOL IADNA 48798 GALI TALBERT CHLAMYDIA 0 [facility] INC INC TRACHOMAT IS AMPLIFIED PROBE TQ REMOVAL 9817 GALI TALBERT INTRALUMI 0 [facility] NAL FB INC INC FROM VAGINA W/O INCISION COMPREHEN 81759 GALI GALI SIVE 0 [facility] METABOLIC INC INC PANEL IADNA 25173 GALI TALBERT NEISSERIA 0 [facility] INC INC GONORRHOE AE AMPLIFIED PROBE TQ RADEX 08845 [place] PEDRO FOOT 0 MEDICAL STEFAN COMPLETE IMAGING MINIMUM 3 ASS VIEWS RADEX 02407 [place] JEAN-PIERRE FOOT 0 MEDICAL NICOLÁS COMPLETE IMAGING MINIMUM 3 ASS VIEWS APPLICATI 9354 GALI TALBERT ON OF 0 [facility] [place] [address] SARI IESHA 0 EMERGENCY KAVYA METATARSA SERVICES L FRACTURE W/O MANIPULAT ION RADIOLOGI 08576 G[facility] TALBERT C EXAM 8 [facility] CHEST 2 INC INC VIEWS FRONTAL&L ATERAL ECG 83060 GALI TALBERT ROUTINE 8 [facility] ECG INC INC W/LEAST 12 LDS TRCG ONLY W/O I&R Encounters Encounter Start End Date Code Location Performer Type Date Emergency AMANDA Diaz MD (ER) 3 13:09 3 13:[address] [facility]140 [facility] L[facility]MODER SEVERITY EMERGENCY 97490 SARI JULIAN 2 2 EMERGENCY [facility] DEPARTMEN SERVICES T VISIT MODERATE SEVERITY [facility]OSPITAL GAL[facility] - 2 2 [facility] OUT[facility] INC T EMERGENCY 58113 CELLAROSI CELLAROSI 2 2 - YOR[facility] - [facility] DEPARTMEN PAT PAT T VISIT HIGH/URGE NT SEVERITY PERIODIC 64586 [facility] PREVENTIV 2 2 JADEN E MED EST PATIENT 18-39 YRS [facility] - 2 2 [facility] OUTPATIEN INC T HOSPITAL GALI - 2 2 [facility] OUTPATIEN [facility] T OFFICE 25024 HARPEL HARPEL OUTPATIEN 2 2 JADEN JADEN T VISIT 15 MINUTES HOSPITAL GALI - 2 2 [facility] OUTPATIEN [facility] T OFFICE 46013 HARPEL HARPEL OUTPATIEN 2 2 JADEN JADEN T VISIT 15 MINUTES OFFICE 43552 [facility] OUTPATIEN 2 2 [facility] T[facility]WO T VISIT 15 MINUTES EMERGENCY 42910 [facility] L[facility]MODER SEVERITY [facility] G[facility] - 2 2 [facility] OUTPATIEN INC T EMERGENCY 79819 SARI JULIAN 2 2 EMERGENCY [facility] DEPARTMEN SERVICES T VISIT MODERATE SEVERITY [facility]OSPITAL [facility] - 2 2 [facility] OUTPATIEN INC T EMERGENCY 96217 SARI JULIAN 2 2 EMERGENCY [facility] SERVICES T VISIT HIGH/URGE NT SEVERITY EMERGENCY 98812 GALI 2 2 [facility] INC T VISIT LOW/MODER SEVERITY EMERGENCY 15994 GALI 2 2 [facility] INC T VISIT LOW/MODER SEVERITY HOSPITAL GALI - 2 2 [facility] OUTPATIEN INC T EMERGENCY 72447 YUDITH YUDITH 2 2 III JIM III [facility] T VISIT HIGH/URGE NT SEVERITY EMERGENCY 48424 GALI 2 2 [facility] INC T VISIT MODERATE SEVERITY HOSPITAL GALI - 2 2 [facility] T HOSPITAL GALI [facility] 2 2 [facility] T OFFICE 84769 DENILSON OREILLY OUTPATIEN 2 2 JADEN JADEN T VISIT 15 MINUTES EMERGENCY 38463 TURCIOS RENE TURCIOS RENE DEPT 2 2 VISIT HIGH SEVERITY& THREAT FUN EMERGENCY 58180 GALI 2 2 [facility] T VISIT HIGH/URGE NT SEVERITY HOSPITAL GALI - 2 2 [facility] T OFFICE 78166 DENILSON OREILLY OUTPATIEN 2 2 JADEN JADEN T VISIT 15 MINUTES HOSPITAL GALI - 2 2 [facility] OUTPATIEN [facility] T OFFICE 29779 FELIZ OREILLY OUTPATIEN 2 2 DENILSON STANLEY T VISIT 15 MINUTES HOSPITAL GALI - 1 1 [facility] OUTPATI[facility] INC T EMERGENCY 52992 GALI 1 1 [facility] INC T VISIT LOW/MODER SEVERITY [facility]OSPITAL [facility] - 1 1 [facility] T EMERGENCY 21496 [facility]I 1 1 [facility] T VISIT LIMITED/M INOR PROB EMERGENCY 18938 SARI ZURITA 1 [facility] MODERATE SEVERITY OFFICE 60042 [facility] 1 1 [facility] T VISIT GROUP 15 PCC MINUTES OFFICE 32799 [facility] 1 1 [facility] T VISIT GROUP 15 PCC MINUTES OFFICE 81010 [facility] 1 1 [facility] T VISIT GROUP 15 PCC MINUTES [facility] - [facility] 1 [facility] T OFFICE 98850 A C SA[facility] OUTPATIEN 1 1 INOCENCIO JARAMILLO TAIWO T VISIT PSC 15 MINUTES [facility] - 1 1 [facility] T [facility] - 1 1 [facility] T OFFICE 10961 [facility] 1 1 [facility]YSIC[facility] JADEN T VISIT GROUP 15 PCC MINUTES OFFICE 86525 [facility] 1 1 [facility] T VISIT GROUP 15 PCC MINUTES [facility]OSP[facility] - 1 1 [facility] T INITIAL 71668 [facility] PREVENTIV 1 1 PHYSICIAN JADEN E GROUP MEDICINE PCC NEW PT AGE [id number] OFFICE 06183 A C [facility] OUTPATIEN 1 1 INOCENCIO MARAVILLA T VISIT PSC 15 MINUTES OFFICE 05952 KODY SOTELO OUTPATIEN 1 1 VISION T VISIT 10 MINUTES EMERGENCY 90470 SARI JULIAN 1 1 [facility] HIGH/URGE NT SEVERITY EMERGENCY 55493 [facility]I 1 1 [facility] DEPART[facility] INC T VISIT LOW/MODER SEVERITY [facility]OSPITAL [facility] - 1 1 [facility] INC T EMERGENCY 86480 GALI 0 0 [facility] DEPARTMEN INC T VISIT MODERATE SEVERITY HOSPITAL G[facility]I - 0 0 [facility] OUTPATIEN INC T EMERGENCY 07602 SARI DILLON 0 0 EMERGENCY [facility] T VISIT HIGH/URGE NT SEVERITY HOSPITAL GALI - 0 0 [facility] OUTPATIEN INC T EMERGENCY 86617 SARI JULIAN 0 0 EMERGENCY [facility] T VISIT HIGH/URGE NT SEVERITY EMERGENCY 31932 GALI DEPT 0 0 [facility] HIGH SEVERITY& THREAT FUN [facility]PITAL GALI - 0 0 [facility] OUTPATIEN [facility] T OFFICE 00592 A NADIA MAX 0 0 INOCENCIO Navarro VISIT PSC 15 MINUTES OFFICE 29240 NADIA TEAGUE 0 0 INOCENCIO Navarro VISIT PSC 15 MINUTES HOSPITAL GALI - 0 0 [facility] OUTPATIEN [facility] T EMERGENCY 14284 SARI JULIAN 0 0 EMERGENCY [facility] SERVICES T VISIT HIGH/URGE NT SEVERITY EMERGENCY 03265 GALI 0 0 [facility] DEPARTMEN INC T VISIT LOW/MODER SEVERITY HOSPITAL GALI - 8 8 [facility] OUTPATIEN INC T EMERGENCY 01655 JAMES AARON 8 8 [facility] T VISIT ON HIGH/URGE NT SEVERITY EMERGENCY 66853 GALI 8 8 [facility] DEPARTMEN INC T VISIT LOW/MODER SEVERITY OFFICE 49571 Ellie SMITH 8 8 INOCENCIO Navarro NEW 30 PSC MINUTES EMERGENCY 97097 GALI COULTER, 8 8 [facility] T VISIT PROF LETICIA LOW/MODER SEVERITY
--- OUTSIDE RECORDS SUMMARY | 2017-03-25 22:15 | External Medical Summary Rpt | CCD ---
Author Author , TEJAS Organization TEJAS Address Unknown Phone [email or web address] Team Providers Care In File Operator Name Role Phone A Supriya PAINTER MD PSC, A Unavailable Unavailable Supriya PAINTER MD PSC [facility] Unavailable Unavailable LABORATORIES, [facility] [employer] [employer] [facility] Unavailable Unavailable INC, [facility] Unavailable Unavailable SERVICE, [facility]ULANCE SERVICE [facility] Unavailable Unavailable SERVICE, [facility] CELLAROSI - YORBA Unavailable Unavailable PAT, CELLAROSI - YORBA PAT CELLAROSI - YORBA Unavailable Unavailable PAT, CELLAROSI - YORBA PAT CHIPPS DAVIAN & Unavailable Unavailable DUBILIER, [facility] DUBILIER PEDRO STEFAN, Unavailable Unavailable PEDRO STEFAN [facility], Unavailable Unavailable [facility] [place]available [place]available [place], [facility] [place] [facility] Un[place], [facility] Unavailable Unavailable [facility] Unavailable Unavailable IESHA KAVYA, IESHA Unavailable Unavailable KAVYA CORY KAVYA, CORY KAVYA Unavailable Unavailable TURCIOS RENE, TURCIOS RENE Unavailable Unavailable TURCIOS RENE, TURCIOS RENE Unavailable Unavailable HARPEL JADEN, HARPEL Unavailable Unavailable JADEN HARPEL JADEN, HARPEL Unavailable Unavailable JADEN [facility], [facility] Unavailable Unavailable HOSPITAL P, [facility] ENCARNACION ASHLEIGH, E[facility]ARNA[facility]ION ASHLEIGH Unavailable Unavailable [facility] Unavailable Unavailable [facility], [facility] WILMA MICHELLE CHA Unavailable Unavailable [facility] Un[facility], [facility] CLARA VALLEJO Unavailable Unavailable [facility] Unavailable Unavailable SERVICES, [facility] Octavio Diaz MD, Unavailable Unavailable [...] SAHRA, IRINA [facility] Unavailable Unavailable [id number] # [id number], [facility] [address] # [id number] SMALL, DAVE Navarro, SMALL, Unavailable Unavailable DAVE T [facility] # Unavailable Unavailable [id number], [facility] # [id number] WEHRMAN III JIM, Unavailable Unavailable WEHRMAN III JIM WEHRMAN III JIM, Unavailable Unavailable WEHRMAN III JIM ARNOLDO AARON, Unavailable Unavailable ARNOLDO AARON CHR, LORI Unavailable Unavailable CHR Ellie PAINTER WRIGHT, Unavailable Unavailable Ellie C Purpose Continuity of Care Document - 07-31-2007 through 2016 Problems Code Diagnosis DOS Provider Status 462 [id number] ACUTE 09-06-2012 [facility] 16086 PAIN IN 12-05-2011 [facility] JOINT, MEDICAL ANKLE AND IMAGING ASS FOOT 72774 SPRAIN AND 12-05-2011 [facility] STRAIN OF EMERGENCY UNSPECIFIED SERVICES SITE OF FOOT 94571 OTHER FOOT 12-05-2011 [facility] SPRAIN AND [facility] STRAIN INC 9599 INJURY 12-05-2011 [facility] OTHER AND MEDICAL UNSPECIFIED IMAGING ASS UNSPECIFIED SITE 47900 UNSPECIFIED 12-04-2011 [facility] SITE OF ANKLE SPRAIN AND STRAIN 58474 OTHER ACUTE 11-27-2011 CELLAROSI - YORBA PAT POSTOPERATI VE PAIN 5680 PERITONEAL 11-27-2011 CELLAROSI - ADHESIONS YORBA PAT 69953 ABDOMINAL 11-27-2011 CELLAROSI - PAIN RIGHT YORBA [...] HARPEL JADEN SYMPTOM ASSOC W/FEMALE GENITAL ORGANS 19502 UNSPECIFIED 09-23-2011 SAHRA TAIWO OTALGIA 6823 CELLULITIS 08-15-2011 [facility] AND ABSCESS EMERGENCY OF UPPER SERVICES ARM AND FOREARM 17507 CONTUSION 08-08-2011 WEHRMAN III OF BUTTOCK JIM 46679 OTHER 08-08-2011 [facility] INJURY OF MEDICAL OTHER SITES IMAGING ASS OF TRUNK E8889 UNSPECIFIED 08-08-2011 [facility] FALL [facility] 29930 ABDOMINAL 06-28-2011 TURCIOS RENE PAIN, UNSPECIFIED SITE 98461 ABDOMINAL 06-28-2011 [facility] PAIN, LEFT [facility] LOWER INC QUADRANT V8801 ACQUIRED 06-14-2011 [facility] ABSENCE OF MEDICAL BOTH CERVIX IMAGING ASS AND UTERUS 30090 PAIN IN 06-09-2011 [facility] JOINT, SHOULDER REGION 9221 CONTUSION 06-09-2011 LORI CHR OF CHEST WALL 92086 CONTUSION 06-09-2011 [facility] OF SHOULDER [facility] REGION INC 04748 UNSPECIFIED 02-16-2011 [facility] VIRAL [facility] INFECTION SERVICES IN CCE & UNS SITE 4659 ACUTE URIS 02-16-2011 [facility] OF EMERGENCY UNSPECIFIED SERVICES SITE 13131 GALLSTONE 01-31-2011 [facility] ILEUS PHYSICIAN GROUP [facility] 75733 CALCU 01-31-2011 [facility] GALLBLADD PHYSICIAN W/O MENTION GROUP [facility] CHOLECYST/O BST 70215 UNSPECIFIED 01-31-2011 [facility] VAGINITIS PHYSICIAN AND GROUP [facility] VULVOVAGINI TIS 6262 EXCESSIVE 01-10-2011 [facility] OR FREQUENT PHYSICIAN GROUP [facility] MENSTRUATIO N 6160 CERVICITIS 12-31-2010 [facility]IP[facility] AND DAVIAN & ENDOCERVICI DUBILIER TIS 6268 OTH D/O 12-31-2010 [facility] MENSTRUATIO MEM HOSP N&OTH ABN INC BLEED FE GNT TRACT 9982 ACCIDENTAL 12-31-2010 [facility] PUNCTURE/LA [facility] CERATION INC DURING PROC NEC 79843 UNS ADVRS 12-30-2010 A Supriya PAINTER EFF OTH RX PSC MEDICINAL&B IOLOGICAL SBSTNC E9342 ANTICOAG 12-30-2010 A Supriya PAINTER CAUSING PSC ADVERSE EFFECT THERAPEUTIC USE 29357 GENERALIZED 12-22-2010 A Supriya PAINTER ANXIETY PSC DISORDER V641 SURG/OTH 12-20-2010 [facility] PROC NOT [facility] DONE INC BECAUSE CONTRAINDIC ATION 2180 SUBMUCOUS 11-29-2010 [facility] LEIOMYOMA PHYSICIAN OF UTERUS GROUP [facility] 76525 POISONING 11-25-2010 [facility] BY OTHER [facility] P ANTS 9695 POISONING 11-25-2010 [facility] BY OTHER [facility] P RS 79 POISONING 11-25-2010 [facility] UNSPECIFIED [facility] SERVICE DRUG/MEDICI NAL SUBSTANCE 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 [facility] HISTORY OF PHYSICIAN CERVICAL GROUP [facility] DYSPLASIA 80133 CORNEAL 10-08-2010 [facility] 8449 SPRAIN&STRA 07-10-2010 [facility] IN OF EMERGENCY UNSPECIFIED SERVICES SITE OF KNEE&LEG 9597 INJURY 07-10-2010 [facility] OTHER&UNSPE MEDICAL CIFIED KNEE IMAGING ASS LEG ANKLE&FOOT 7242 LUMBAGO 05-04-2010 [facility] 8472 LUMBAR 05-04-2010 [facility] SPRAIN AND EMERGENCY STRAIN SERVICES 9392 FOREIGN 04-01-2010 [facility] BODY IN EMERGENCY VULVA AND SERVICES VAGINA 77015 CLOSED 12-31-2009 [facility] FRACTURE OF MEDICAL METATARSAL IMAGING ASS BONE E9278 OTH 12-20-2009 [facility] OVEREXERT&S EMERGENCY TRENUOUS&RE SERVICES PETITIVE MVMNTS/LOAD S 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 07991 CHEST PAIN 03-22-2008 [facility]PECIFIED [facility] 48902 PRECORDIAL 03-22-2008 [facility] PAIN iiko 4619 ACUTE 10-30-2007 Ellie PAINTER SINUSITISMD PSC UNSPECIFIED 3829 UNSPECIFIED 07-31-2007 [facility] PROF SERV 71591 VOMITING 07-31-2007 [facility] PROF SERV 74396 DIARRHEA 07-31-2007 [facility] PROF SERV Allergies, Adverse Reactions, Alerts Type Allergy to substance Drug Allergy Adverse Reaction to Substance Substance Reaction Severity BANDAIDS RASH/SWELLING Unknown Cephalexin Q-HUBUYD-LJHW/THROAT Severe Codeine MUSCLE SPASM Intermediate [place] Juice I-HIVES Intermediate Medications Na ND Rx [...] 20 20 RT 3 10 11 11 CA HC 1 PH CH L AR AE 50 MA L CY S MG # TA 10 BL 05 ET 91 DI 16 01 02 0 14 7 WA 71 GA Ac CL 57 -2 -0 .0 L- 05 IN ti OF 10 9- 2- 00 MA 09 EY ve EN 20 20 20 RT 5 AC 11 11 11 CA 0 PH CH SO AR AE D [...] Procedure DOS Code Location Performer Comment RADEX 76243 [facility] PEDRO FOOT 2 MEDICAL STEFAN COMPLETE IMAGING MINIMUM 3 ASS VIEWS CRTCHS E0114 [facility] UNDARM 2 OTH THAN WOOD PAIR PAD TIP&HNDGR IP SURGICAL L3260 [facility] BOOT/SHOE 2 EACH IADNA 27160 BIO BIO CHLAMYDIA 2 REFERNCE REFERNCE LABORATOR LABORATOR TRACHOMAT IES IES IS AMPLIFIED PROBE TQ CULTURE 67368 HARPEL HARPEL CHLAMYDIA 2 JADEN JADEN ANY SOURCE CYTP C/V 15890 BIO BIO AUTO THIN 2 REFERNCE REFERNCE LYR LABORATOR LABORATOR PREPJ SCR IES IES MNL RESCR PHYS URINLS 64701 HARPEL HARPEL DIP 2 JADEN JADEN STICK/TAB LET REAGNT NON-AUTO MICRSCPY IADNA 24698 HARPEL HARPEL NEISSERIA 2 JADEN JADEN GONORRHOE AE DIRECT PROBE TQ IADNA 76147 BIO BIO NEISSERIA 2 REFERNCE REFERNCE LABORATOR LABORATOR GONORRHOE IES IES AE AMPLIFIED PROBE TQ IADNA NOS 43865 BIO BIO 2 REFERNCE REFERNCE AMPLIFIED LABORATOR LABORATOR PROBE [place] [address] PATHOLOGY CORY KAVYA SURG 2 & PATHOLOGY CYTOLOGY LAB GROSS&KAVYA ROSCOPIC EXAM UNLISTED 25268 [facility] TALBERT LAPAROSCO 2 MEM HOS[facility]OS[facility] PIC PX INC INC ABD PERTONEUM & OMENTUM BLOOD 33919 [facility] T[facility] COUNT 2 MEM HOS[facility] MEM [facility]OS[facility] HEMOGLOBI INC INC N ANESTHESI 17007 COMMUNITY TERRIE WILL A 2 ANESTH INTRAPERI OF THE TONEAL BLUE LOWER ABD W/LAPS NOS LAPAROSCO 04448 [facility] TALBERT PY W/RMVL 2 MEM [facility] ADNEXAL INC INC STRUCTURE S BLOOD 04446 [facility] COUNT 2 MEM HOS[facility] MEM [facility]OS[facility] HEMATOCRI INC INC T LAPAROSCO 04322 HARPEL HARPEL PY 2 JADEN JADEN W/LYSIS OF ADHESIONS BLOOD 63371 [facility] COUNT 2 [facility] COMPLETE INC INC AUTO&AUTO DIFRNTL WBC URNLS DIP 73429 [facility]AL[facility]ERT 2 [facility] STICK/TAB INC [place] [address] [facility] TRANSVAGI 2 [facility] NAL INC INC IAADI 88033 [facility] T[facility] INFLUENZA 2 [facility] B VIRUS INC INC IAADI 07051 [facility] T[facility] INFFLUENZ 2 [facility] [place] [address] [facility] STREPTOCO 2 [facility] CCUS INC INC GROUP A SUSCEPTIB 81436 [facility] ILITY 2 [facility] STUDY INC INC ANTIMICRO BIAL DISK METHOD CUL BACT 82502 [facility] XCPT 2 [facility] URINE INC INC BLOOD/STO OL AEROBIC ISOL INCISION 60956 SARI JULIAN & 2 EMERGENCY KAVYA DRAINAGE SERVICES ABSCESS COMPLICAT ED/MULTIP LE CUL BACT 84284 [facility] AEROBIC 2 [facility] ADDL INC INC METHS DEFINITIV E EA ISOL RADEX 89775 [facility] T[facility] SACRUM & 2 MEM H[facility]OS[facility] COCCYX INC INC MINIMUM 2 VIEWS BLOOD 17462 [facility] T[facility]ERT COUNT 2 [facility]OS[facility] COMPLETE INC INC AUTO&AUTO DIFRNTL WBC ANESTHESI 20145 COMMUNITY GOYAL JIM A 2 ANESTH INTRAPERI OF THE TONEAL BLUE LOWER ABD W/LAPS NOS LAPAROSCO 74632 HARPEL HARPEL PY 2 JADEN JADEN W/LYSIS OF ADHESIONS CULTURE 79228 [facility] BCT 2 [facility] ISOL&PRSM INC INC PTV ID ISOLATE EA URINE SUSCEPTIB 61754 [facility] LTY STDY 2 [facility] ANTIMICRB INC INC IAL MICRO/AGA R DILUTJ CULTURE 42579 [facility] BACTERIAL 2 [facility] INC INC QUANTTATI VE COLONY COUNT URINE URNLS DIP 54126 [facility] TAL[facility]ERT 2 [facility] STICK/TAB INC INC LET REAGENT AUTO MICROSCOP Y BLOOD 77697 [facility] TAL[facility]ERT COUNT 2 [facility] COMPLETE INC INC AUTO&AUTO DIFRNTL WBC URNLS DIP 42360 [facility] TAL[facility]ERT 2 [facility] STICK/TAB INC INC LET REAGENT AUTO MICROSCOP Y CULTURE 54601 [facility] BACTERIAL 2 [facility] INC INC QUANTTATI VE COLONY COUNT URINE URINE 28497 [facility] TAL[facility]ERT 2 [facility] TEST INC INC VISUAL COLOR CMPRSN METHS SUSCEPTIB 90792 [facility] TALBERT LTY STDY 2 [facility] ANTIMICRB INC INC IAL MICRO/AGA R DILUTJ CULTURE 79576 [facility] BCT 2 [facility] ISOL&PRSM INC INC PTV ID ISOLATE EA URINE AMB A[address] [facility] SERVICE 2 AMBULANCE AMBULANCE ALS SERVICE SERVICE EMERGENCY TRANSPORT LEVEL 1 GROUND [address] [facility] MILEAGE 2 AMBULANCE AMBULANCE PER SERVICE SERVICE STATUTE MILE 70159 [facility] TRANSVAGI 2 [facility] NAL INC INC RADIOLOGI 33128 [facility] C EXAM 1 [facility] CHEST 2 INC INC VIEWS FRONTAL&L ATERAL RADEX 59350 [facility] CLAVICLE 1 [facility] COMPLETE INC INC BLOOD 16105 [facility] COUNT 1 [facility] HEMOGLOBI INC INC N BLOOD 22425 [facility] COUNT 1 [facility] MEM [facility]OS[facility] HEMATOCRI INC INC T OBSERVATI 57189 [facility] ON CARE 1 PHYSICIAN JADEN DISCHARGE GROUP [facility] OBSERVATI 1 [facility] ON INC INC SERVICE [facility] G0378 G[facility] OBSERVATI 1 [facility] ON INC [place] [address] [facility] VAN SURG 1 DAVIAN & PATHOLOGY DUBILIER GROSS&KAVYA ROSCOPIC EXAM SUTURE OF 5781 GALI TALBERT 1 [facility] LACERATIO INC INC N OF BLADDER OTHER 6859 GALI TALBERT VAGINAL 1 [facility] HYSTERECT INC INC PURA ANESTHESI 37828 [facility] A VAGINAL 1 ANESTH OF THE HYSTERECT BLUE PURA INCL BIOPSY VAGINAL 06552 [facility] T[facility] HYSTERECT 1 [facility] PURA INC INC UTERUS 250 GM/< CHEMOTX 37916 [facility] TAL[facility] ADMN 1 [facility] SUBQ/IM INC INC NON-HORMO NAL ANTI-EMERITA TX PROC G0238 [facility] IMPRV 1 [facility] RESP INC INC FUNCT NOT G0237 FCE-FCE 15MIN URNLS DIP 35553 [facility]ERT 1 [facility] STICK/TAB INC INC LET REAGENT AUTO MICROSCOP Y CULTURE 74046 [facility] BACTERIAL 1 [facility]OS[facility] INC INC QUANTTATI VE COLONY COUNT URINE SBSQ 51436 [facility] 1 INOCENCIO JARAMILLO TAIWO CARE/DAY PSC 15 [place] [address] G[facility] T[facility]ERT INFUSION 1 [facility] THERAPY/P INC INC ROPHYLAXI S /DX 1ST TO 1 HR GLUC BLD 77637 [facility] GLUC MNTR 1 [facility] DEV INC INC CLEARED FDA SPEC HOME USE BLOOD 80318 GALI [place] COUNT 1 [facility] H[facility] COMPLETE INC INC AUTO&AUTO DIFRNTL WBC URNLS DIP 85289 [facility] TAL[facility]ERT 1 [facility] STICK/TAB INC INC LET REAGENT AUTO MICROSCOP Y URINE 55483 [facility]ERT 1 [facility] TEST INC INC VISUAL COLOR CMPRSN METHS CYTP 16296 NATALIE ESTRADA SLCTV 1 LABORATOR LABORATOR CELL IES INC IES INC ENHANCEME NT INTERPJ XCPT C/[place] [address] [facility] HARPEL TRANSVAGI 1 PHYSICIAN JADEN REPLACED BY [facility] PCC SMR PRIM 94298 [facility] HARPEL SRC WET 1 PHYSICIAN JADEN [facility] NFCT AGT PCC ECG 11909 GALI FRANCISCO ROUTINE [address] [facility] W/LEAST P 12 LDS I&R ONLY AMB A0427 [facility]ICE 1 AMBULANCE AMBULANCE ALS SERVICE SERVICE EMERGENCY TRANSPORT LEVEL 1 ALS A0398 ISABEL [facility] ROUTINE 1 AMBULANCE AMBULANCE DISPOSABL SERVICE SERVICE E SUPPLIES GROUND A0425 ISABEL HALL MILEAGE 1 AMBULANCE AMBULANCE PER SERVICE SERVICE STATUTE MILE BLOOD 62812 [facility] T[facility]ERT COUNT 1 [facility] COMPLETE INC INC AUTO&AUTO DIFRNTL WBC RADIOLOGI 41237 [facility] C 1 [facility] EXAMINATI INC INC ON KNEE 3 VIEWS RADEX 45781 [facility]ERT SPINE 0 [facility] LUMBOSACR INC INC AL MINIMUM 4 VIEWS URNLS DIP 39638 [facility] 0 [facility] STICK/TAB INC INC LET REAGENT AUTO MICROSCOP Y URNLS DIP 69508 [facility]ERT 0 [facility] STICK/TAB INC INC LET REAGENT AUTO MICROSCOP Y BLOOD 21142 [facility] COUNT 0 [facility] COMPLETE INC INC AUTO&AUTO DIFRNTL WBC SUSCEPTIB 79357 [facility] LTY STDY 0 [facility] ANTIMICRB INC INC IAL MICRO/AGA R DILUTJ CULTURE 08751 [facility] BACTERIAL 0 [facility] BLOOD INC INC AEROBIC W/ID ISOLATES URINE 53017 [facility] TALBERT 0 [facility] TEST INC INC VISUAL COLOR CMPRSN METHS SEDIMENTA 84438 [facility]ERT TION RATE 0 [facility] RBC INC INC NON-AUTOM ATED SMR PRIM 28143 G[facility] TAL[facility]ERT SRC WET 0 [facility] MOUNT INC INC NFCT AGT CUL BACT 19638 GALI GALI AEROBIC 0 [facility] ADDL INC INC METHS DEFINITIV E EA ISOL IADNA 73908 G[facility] TALBERT CHLAMYDIA 0 [facility] INC INC TRACHOMAT IS AMPLIFIED PROBE TQ REMOVAL 9817 [facility] INTRALUMI 0 [facility] NAL FB INC INC FROM VAGINA W/O INCISION COMPREHEN 16188 GALI GALI SIVE 0 [facility] METABOLIC INC INC PANEL IADNA 52144 G[facility] TALBERT NEISSERIA 0 [facility] INC INC GONORRHOE AE AMPLIFIED PROBE TQ RADEX 98390 [facility] PEDRO FOOT 0 MEDICAL STEFAN COMPLETE IMAGING MINIMUM 3 ASS VIEWS RADEX 84179 [place] JEAN-PIERRE FOOT 0 MEDICAL NICOLÁS COMPLETE IMAGING MINIMUM 3 ASS VIEWS APPLICATI 9354 G[facility] TALBERT ON OF 0 [facility] [place] [address] SARI IESHA 0 EMERGENCY KAVYA METATARSA SERVICES L FRACTURE W/O MANIPULAT ION RADIOLOGI 92567 [facility]AL[facility]ERT C EXAM 8 [facility] CHEST 2 INC INC VIEWS FRONTAL&L ATERAL ECG 80817 [facility] TAL[facility]ERT ROUTINE 8 [facility] ECG INC INC W/LEAST 12 LDS TRCG ONLY W/O I&R Encounters Encounter Start End Date Code Location Performer Type Date Emergency AMANDA Diaz MD (ER) 3 13:09 3 13:27 [facility] EMERGENCY 84273 [facility] 2 [facility] LOW/MODER SEVERITY EMERGENCY 66644 SARI JULIAN 2 2 EMERGENCY [facility] DEPARTMEN SERVICES T VISIT MODERATE SEVERITY HOSPITAL GALI - 2 2 [facility] OUTPATIEN INC T EMERGENCY 41824 CELLAROSI CELLAROSI 2 2 - YORBA - YORBA DEPARTMEN PAT PAT T VISIT HIGH/URGE NT SEVERITY PERIODIC 97168 [facility] PREVENTIV 2 2 JADEN E MED EST PATIENT 18-39 YRS HOSPITAL G[facility]I - 2 2 [facility] OUTPATIEN INC T HOSPITAL GALI - 2 2 [facility] T OFFICE 47497 HAR[facility] OUTPATIEN 2 2 JADEN JADEN T VISIT 15 MINUTES HOSPITAL GALI - 2 2 [facility] T OFFICE 28732 HARPEL HARPEL OUTPATIEN 2 2 JADEN JADEN T VISIT 15 MINUTES OFFICE 36451 SAHRA SAHRA OUTPATIEN 2 2 TAIWO TAIWO T VISIT 15 MINUTES EMERGENCY 28958 [facility] 2 [facility]IS[facility] LOW/MODER SEVERITY HOSPITAL GALI - 2 2 [facility] OUT[facility] INC T EMERGENCY 10694 SARI JULIAN 2 2 EMERGENCY [facility] DEPARTMEN SERVICES T VISIT MODERATE SEVERITY HOSPITAL GALI - 2 2 [facility] OUTPATIEN INC T EMERGENCY 29081 SARI JULIAN [address] [facility] SERVICES T VISIT HIGH/URGE NT SEVERITY EMERGENCY 21061 GALI 2 2 [facility] INC T VISIT LOW/MODER SEVERITY EMERGENCY 16803 GALI 2 2 [facility] INC T VISIT LOW/MODER SEVERITY HOSPITAL GALI - 2 2 [facility] OUTPAT[facility] INC T EMERGENCY 52353 YUDITH YUDITH 2 2 III JIM III [facility] T VISIT HIGH/URGE NT SEVERITY EMERGENCY 15006 GALI 2 2 [facility] INC T VISIT MODERATE SEVERITY HOSPITAL GALI - 2 2 [facility] T HOSP[facility]ALI - 2 2 [facility] T OFFICE 17558 DENILSON OREILLY OUTPATIEN 2 2 JADEN JADEN T VISIT 15 MINUTES EMERGENCY 86369 TURCIOS RENE TURCIOS RENE DEPT 2 2 VISIT HIGH SEVERITY& THREAT FUN EMERGENCY 09575 GALI 2 2 [facility] T VISIT HIGH/URGE NT SEVERITY HOSPITAL GALI - 2 2 [facility] T OFFICE 49065 DENILSON OREILLY OUTPATIEN 2 2 JADEN JADEN T VISIT 15 MINUTES HOSPITAL GALI - 2 2 [facility] OUTPATIEN [facility] T OFFICE 60167 FELIZ OREILLY OUTPATIEN 2 2 DENILSON STANLEY T VISIT 15 MINUTES HOSPITAL GALI - 1 1 [facility] OUTPATIEN INC T EMERGENCY 22495 GALI 1 1 [facility] INC T VISIT LOW/MODER SEVERITY HOSPITAL GALI - 1 1 [facility] OUTPATIEN INC T EMERGENCY 59631 GALI 1 1 [facility] DEPARTMEN INC T VISIT LIMITED/M INOR PROB EMERGENCY 73884 SARI ZURITA 1 [facility] MODERATE SEVERITY OFF[facility] 78089 [facility] 1 1 PHYSICIAN JADEN T VISIT GROUP 15 PCC MINUTES OFFICE 88396 [facility] 1 1 PHYSICIAN JADEN T VISIT GROUP 15 PCC MINUTES OFFICE 08165 [facility] 1 1 PHYSICIAN JADEN T VISIT GROUP 15 PCC MINUTES HOSPITAL GALI - 1 1 [facility] OUTPATIEN INC T OFFICE 04730 A C SAHRA OUTPATIEN 1 1 INOCENCIO JARAMILLO TAIWO T VISIT PSC 15 MINUTES [facility] T [facility] T OFFICE 18669 [facility] 1 1 [facility] T VISIT GROUP 15 PCC MINUTES OFFICE 41165 [facility] 1 1 [facility]YSIC[facility] JAD[facility] T VISIT GROUP 15 PCC MINUTES [facility] T INITIAL 05999 [facility] PREVENTIV 1 1 PHYSICIAN JADEN E GROUP MEDICINE PCC NEW PT AGE 18-39YRS OFFICE 38073 A [facility] OUTPATIEN 1 1 INOCENCIO MARAVILLA T VISIT PSC 15 MINUTES OFFICE 71477 KODY SOTELO OUTPATIEN 1 1 VISION T VISIT 10 MINUTES EMERGENCY 62515 [facility] 1 [facility] H[facility]URGE NT SEVERITY EMERGENCY 34683 [facility] 1 1 [facility] T VISIT LOW/MODER SEVERITY [facility] - [facility] 1 [facility] T EMERGENCY 69391 [facility] 0 0 [facility] T VISIT MODERATE SEVERITY [facility] - 0 0 [facility] T EMERGENCY 89758 SARI DILLON 0 0 EMERGENCY [facility] SERVICES T VISIT HIGH/URGE NT SEVERITY [facility] - 0 0 [facility] T EMERGENCY 13295 SARI JULIAN [address] [facility] T VISIT HIGH/URGE NT SEVERITY EMERGENCY 91459 [facility] DEPT 0 0 [facility] SE[facility]& [facility] - 0 0 [facility] T OFFICE 81263 A NADIA MAX 0 0 INOCENCIO Navarro VISIT PSC 15 MINUTES OFFICE 38756 NADIA TEAGUE 0 0 INOCENCIO Navarro VISIT PSC 15 MINUTES [facility] - 0 0 [facility] T EMERGENCY 16905 SARI JULIAN [address] [facility] SERVICES T VISIT HIGH/URGE NT SEVERITY EMERGENCY 09900 [facility] 0 0 [facility] T VISIT LOW/MODER SEVERITY [facility] - 8 8 [facility] T EMERGENCY 81284 JAMES AARON 8 8 [facility] T VISIT ON HIGH/URGE NT SEVERITY EMERGENCY 33503 G[facility]I 8 8 [facility] T VISIT LOW/MODER SEVERITY OFFICE 02079 Ellie SMITH 8 8 INOCENCIO Navarro NEW 30 PSC MINUTES EMERGENCY 74470 GALI COULTER, 8 8 [facility] T VISIT PROF LETICIA LOW/MODER SEVERITY
--- OUTSIDE RECORDS SUMMARY | 2017-03-25 22:18 | External Medical Summary Rpt | CCD ---
Demographics Preferred Language Hebrew Marital Status Unknown Anglican Affiliation Unknown Race Unknown Ethnic Group Unknown Author Author , THAD LAZARO Address Unknown Phone Immunization No patient found.
--- OUTSIDE RECORDS SUMMARY | 2017-03-25 22:18 | External Medical Summary Rpt | CCD ---
Demographics Preferred Language Uzbek Marital Status Unknown Jew Affiliation Unknown Race Unknown Ethnic Group Unknown Author Author , THAD LAZARO Address Unknown Phone Immunization No patient found.
--- OUTSIDE RECORDS SUMMARY | 2017-03-25 22:18 | External Medical Summary Rpt | CCD ---
Author Author , KARINAMIRNA La TEJAS Address Unknown Phone [email or web address] Care Team Providers Care Mending Carrier Name Role Phone A Supriya PAINTER MD PSC, A Unavailable Unavailable Supriya PAINTER MD PSC [facility] Unavailable Unavailable [facility]ATORIES, [facility] Unavailable Unavailable INC, [facility] Unavailable Unavailable SERVICE, [facility] Unavailable Unavailable SERVICE, [facility] CELLAROSI - YORBA Unavailable Unavailable PAT, CELLAROSI - YORBA PAT CELLAROSI - YORBA Unavailable Unavailable PAT, CELLAROSI - YORBA PAT [facility]IP[facility] DAVIAN & Unavailable Unavailable DUBILIER, [facility] DUBILIER PEDRO STEFAN, Unavailable Unavailable PEDRO STEFAN [facility], Unavailable Unavailable [facility] Un[place], [facility] [place] [facility] [place] [facility] Unavailable Unavailable [facility] Unavailable Unavailable IESHA KAVYA, IESHA Unavailable Unavailable KAVYA CORY KAVYA, CORY KAVYA Unavailable Unavailable TURCIOS RENE, TURCIOS RENE Unavailable Unavailable TURCIOS RENE, TURCIOS RENE Unavailable Unavailable HARPEL JADEN, HARPEL Unavailable Unavailable JADEN HARPEL JADEN, HARPEL Unavailable Unavailable JADEN [facility] Unavailable Unavailable INC, [facility] Unavailable Unavailable HOSPITAL P, [facility]NCARNACION ASHLEIGH, [facility] Unavailable Unavailable [facility] Unavailable Unavailable [facility], [facility] WILMA DILLON CHA Unavailable Unavailable [facility] Un[facility] Unavailable [facility], [facility] CLARA VALLEJO Unavailable Unavailable [facility] Unavailable Unavailable SERVICES, [facility] NOLAN FERNANDEZ, Unavailable Unavailable JEAN-PIERRE ALLRED JR Unavailable Unavailable DARIEN ZAVALA P, Unavailable Unavailable DARIEN MOREJON P JAY JAY FERNANDEZ, JAY JAY FERNANDEZ Unavailable Unavailable [facility] Unavailable LAB, [facility] TERRIE WILL, TERRIE WILL Unavailable Unavailable SAHRA TAIWO, SAHRA Unavailable Unavailable TAIWO SAHRA TAIWO, SAHRA Unavailable Unavailable TAIWO SAHRA, IRINA, Unavailable Unavailable SAHRA, IRINA [facility] Unavailable Unavailable [id number] # [id number], [facility] [id number] # [id number] SCHULJIMENA MARRERO, Unavailable Unavailable SCHULSTJALEN MARRERO SMALL, DAVE Navarro, SMALL, Unavailable Unavailable DAVE Navarro [facility] # Unavailable Unavailable [id number], [facility] # [id number] WEHRMAN III JIM, Unavailable Unavailable WEHRMAN III JIM WEHRMAN III JIM, Unavailable Unavailable WEHRMAN III JIM ARNOLDO AARON, Unavailable Unavailable ARNOLDO AARON CHR, LORI Unavailable Unavailable CHR PAINTER, A C, PAINTER, Unavailable Unavailable A C Purpose Continuity of Care Document - 07-31-2007 through 2016 Problems Code Diagnosis DOS Provider Status 07223 PAIN IN 12-05-2011 [facility] JOINT, MEDICAL ANKLE AND IMAGING ASS FOOT 42156 SPRAIN AND 12-05-2011 SARI STRAIN OF EMERGENCY UNSPECIFIED SERVICES SITE OF FOOT 55662 OTHER FOOT 12-05-2011 GALI SPRAIN AND [facility] STRAIN INC 9599 INJURY 12-05-2011 [facility] OTHER AND MEDICAL UNSPECIFIED IMAGING ASS UNSPECIFIED SITE 68639 UNSPECIFIED 12-04-2011 DORENE L.P. SITE OF ANKLE SPRAIN AND STRAIN 81981 OTHER ACUTE 11-27-2011 CELLAROSI - YORBA PAT POSTOPERATI VE PAIN 5680 PERITONEAL 11-27-2011 CELLAROSI - ADHESIONS YORBA PAT 44566 ABDOMINAL 11-27-2011 CELLAROSI - PAIN RIGHT YORBA [...] HARPEL JADEN SYMPTOM ASSOC W/FEMALE GENITAL ORGANS 27721 UNSPECIFIED 09-23-2011 SAHRA TAIWO OTALGIA 462 ACUTE 09-15-2011 [facility] PHARYNGITIS EMERGENCY SERVICES 6823 CELLULITIS 08-15-2011 [facility] AND ABSCESS EMERGENCY OF UPPER SERVICES ARM AND FOREARM 80889 CONTUSION 08-08-2011 WEHRMAN III OF BUTTOCK JIM 73820 OTHER 08-08-2011 [facility] INJURY OF MEDICAL OTHER SITES IMAGING ASS OF TRUNK E8889 UNSPECIFIED 08-08-2011 [facility] FALL MEDICAL [facility] 23455 ABDOMINAL 06-28-2011 TURCIOS RENE PAIN, UNSPECIFIED SITE 74570 ABDOMINAL 06-28-2011 GALI PAIN, LEFT [facility] LOWER INC QUADRANT V8801 ACQUIRED 06-14-2011 [facility] ABSENCE OF MEDICAL BOTH CERVIX IMAGING ASS AND UTERUS 70942 PAIN IN 06-09-2011 DORENE L.P. JOINT, SHOULDER REGION 9221 CONTUSION 06-09-2011 LORI CHR OF CHEST WALL 21156 CONTUSION 06-09-2011 GALI OF SHOULDER [facility] REGION INC 81878 UNSPECIFIED 02-16-2011 [facility] VIRAL EMERGENCY INFECTION SERVICES IN CCE & UNS SITE 4659 ACUTE URIS 02-16-2011 [facility] OF EMERGENCY UNSPECIFIED SERVICES SITE 83732 GALLSTONE 01-31-2011 [facility] ILEUS PHYSICIAN GROUP [facility] 86944 CALCU 01-31-2011 [facility] GALLBLADD PHYSICIAN W/O MENTION GROUP [facility] CHOLECYST/O BST 80424 UNSPECIFIED 01-31-2011 [facility] VAGINITIS PHYSICIAN AND GROUP [facility] VULVOVAGINI TIS 6262 EXCESSIVE 01-10-2011 [facility] OR FREQUENT PHYSICIAN GROUP [facility] MENSTRUATIO N 6160 CERVICITIS 12-31-2010 CHIPPS AND DAVIAN & ENDOCERVICI DUBILIER TIS 6268 OTH D/O 12-31-2010 GALI MENSTRUATIO [facility] N&OTH ABN INC BLEED FE GNT TRACT 9982 ACCIDENTAL 12-31-2010 [facility] PUNCTURE/LA [facility] CERATION INC DURING PROC NEC 91005 UNS ADVRS 12-30-2010 A Supriya PAINTER EFF OTH RX PSC MEDICINAL&B IOLOGICAL SBSTNC 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 [facility]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 05897 CORNEAL 10-08-2010 [facility] ABSCESS [facility] 8449 SPRAIN&STRA 07-10-2010 SARI IN OF EMERGENCY UNSPECIFIED SERVICES SITE OF KNEE&LEG 9597 INJURY 07-10-2010 [facility] OTHER&UNSPE MEDICAL CIFIED KNEE IMAGING ASS LEG ANKLE&FOOT 7242 LUMBAGO 05-04-2010 [facility] 8472 LUMBAR 05-04-2010 SARI SPRAIN AND EMERGENCY STRAIN SERVICES 9392 FOREIGN 04-01-2010 SARI BODY IN EMERGENCY VULVA AND SERVICES VAGINA 55822 CLOSED 12-31-2009 [facility] FRACTURE OF MEDICAL METATARSAL IMAGING ASS BONE E9278 OTH 12-20-2009 [facility]I OVEREXERT&S EMERGENCY TRENUOUS&RE SERVICES PETITIVE MVMNTS/LOAD S 7336 TIETZES 03-22-2008 RAMIREZ DISEASE [employer] 51708 CHEST PAIN 03-22-2008 [facility]NSPECIFIED [facility] 16155 PRECORDIAL 03-22-2008 WEISSENHAUS PAIN [employer] 4619 ACUTE 10-30-2007 Ellie PAINTER SINUSITISMD PSC UNSPECIFIED 3829 UNSPECIFIED 07-31-2007 [facility] PROF SERV 72546 VOMITING 07-31-2007 [facility] PROF SERV 23424 DIARRHEA 07-31-2007 [facility] PROF SERV Medications Na ND Rx Da Fi Fi Am Da Di Ph RX Ph St me C No te ll ll ou ys ag ar # ys at rm s nt no ma ic us Or Da si cy ia de te s n re d TR 00 12 12 20 2 RI 91 GR Ac AM 09 -2 -2 .0 TE 47 AY ti AD 30 9 9- 00 26 ve OL 05 20 20 AI RO 80 11 11 D BE HC 1 PH RT L AR B 50 MA CY MG 03 TA 93 BL 8 ET # 03 93 EF 00 08 09 1 30 30 EA 23 RI Ac FE 00 -2 -[address] 85 SH ti XO 80 9 7- 00 SI 79 ER ve R 83 20 20 DE XR 62 11 11 RI 2 PH CH 15 AR AR 0 MA D MG CY CA OF PS UL CY E NT HI AN A EF 00 08 08 1 30 30 EA 23 RI Ac FE 00 -2 -[address] 85 SH ti XO 80 9- 9- 00 SI 79 ER ve R 83 20 20 DE XR 62 11 11 RI 2 PH CH 15 AR AR 0 MA D MG CY CA OF PS UL CY E NT HI AN A BU 00 08 08 1 90 30 EA 23 RI Ac SP 37 -2 -[address] 85 SH ti IR 81 9- 9- 00 SI 80 ER ve ON 14 [...] ST 28 SH ti XO 80 3- 9- 00 SI 32 ER ve R [...] 0 2. 2 WA 44 DOSS Ac NH 37 -1 -2 00 L- 95 RP [...] 11 11 EP E 9 PH HE NH AR N OP MA A CY 50 [...] 20 20 RT 3 10 11 11 NE HC 1 PH CH L AR AE 50 MA L CY S MG # TA 10 BL 05 ET 91 DI 16 01 02 0 14 7 WA 71 GA Ac CL 57 -2 -0 .0 L- 05 IN ti OF 10 9- 2- 00 MA 09 EY ve EN 20 20 20 RT 5 AC 11 11 11 NE 0 PH CH SO AR AE D [...] CY OF CY NT HI AN A Procedures Procedure DOS Code Location Performer Comment RADEX 46695 [facility] TALBERT FOOT 2 [facility] COMPLETE INC INC MINIMUM 3 VIEWS CRTCHS E0114 [facility] UNDARM 2 OTH THAN WOOD PAIR PAD TIP&HNDGR IP SURGICAL L3260 [facility] BOOT/SHOE 2 EACH URINLS 89680 HARPEL HARPEL DIP 2 JADEN JADEN STICK/TAB LET REAGNT NON-AUTO MICRSCPY CULTURE 92060 HARPEL HARPEL CHLAMYDIA 2 JADEN JADEN ANY SOURCE CYTP C/V 35356 BIO BIO AUTO THIN 2 REFERNCE REFERNCE LYR LABORATOR LABORATOR PREPJ SCR IES IES MNL RESCR PHYS IADNA 18792 HARPEL HARPEL NEISSERIA 2 JADEN JADEN GONORRHOE AE DIRECT PROBE TQ IADNA 63808 BIO BIO NEISSERIA 2 REFERNCE REFERNCE LABORATOR LABORATOR GONORRHOE IES IES AE AMPLIFIED PROBE TQ IADNA NOS 51666 BIO BIO 2 REFERNCE REFERNCE AMPLIFIED LABORATOR LABORATOR PROBE TQ IES IES EACH ORGANISM IADNA 72315 BIO BIO CHLAMYDIA 2 REFERNCE REFERNCE LABORATOR LABORATOR TRACHOMAT IES I[place] [address] PATHOLOGY CORY KAVYA SURG 2 & PATHOLOGY CYTOLOGY LAB GROSS&KAVYA ROSCOPIC EXAM UNLISTED 31610 GALI TALBERT LAPAROSCO 2 [facility] PIC PX INC INC ABD PERTONEUM & OMENTUM BLOOD 73344 GALI TALBERT COUNT 2 [facility] HEMATOCRI INC INC T ANESTHESI 75258 COMMUNITY TERRIE WILL A 2 ANESTH INTRAPERI OF THE TONEAL BLUE LOWER ABD W/LAPS NOS LAPAROSCO 51829 GALI TALBERT PY W/RMVL 2 [facility] ADNEXAL INC INC STRUCTURE S BLOOD 19872 GALI TALBERT COUNT 2 [facility] HEMOGLOBI INC INC N LAPAROSCO 58558 HARPEL HARPEL PY 2 JADEN JADEN W/LYSIS OF ADHESIONS BLOOD 04440 GALI TALBERT COUNT 2 [facility] COMPLETE INC INC AUTO&AUTO DIFRNTL WBC URNLS DIP 77627 G[facility]I TALBERT 2 [facility] STICK/TAB INC [place] [address] GALI TALBERT TRANSVAGI 2 [facility] [place] [address] GALI TALBERT STREPTOCO 2 [facility] CCUS INC INC GROUP A IAADI 91725 GALI TALBERT INFLUENZA 2 [facility] B VIRUS INC INC IAADI 74960 GALI TALBERT INFFLUENZ 2 [facility] A A VIRUS INC INC CUL BACT 75416 GLAI TALBERT XCPT 2 [facility] URINE INC INC BLOOD/STO OL AEROBIC ISOL CUL BACT 60177 GALI TALBERT AEROBIC 2 [facility] ADDL INC INC METHS DEFINITIV E EA ISOL SUSCEPTIB 32718 GALI TALBERT ILITY 2 [facility] STUDY INC INC ANTIMICRO BIAL DISK METHOD INCISION 39715 SARI JULIAN & 2 EMERGENCY KAVYA DRAINAGE SERVICES ABSCESS COMPLICAT ED/MULTIP LE RADEX 20599 GALI TALBERT SACRUM & 2 [facility] COCCYX INC INC MINIMUM 2 VIEWS BLOOD 04939 GALI TALBERT COUNT 2 [facility] COMPLETE INC INC AUTO&AUTO DIFRNTL WBC ANESTHESI 16298 COMMUNITY GOYAL JIM A 2 ANESTH INTRAPERI OF THE TONEAL BLUE LOWER ABD W/LAPS NOS LAPAROSCO 14978 HARPEL HARPEL PY 2 JADEN JDAEN W/LYSIS OF ADHESIONS SUSCEPTIB 86781 GALI TALBERT LTY STDY 2 [facility] ANTIMICRB INC INC IAL MICRO/AGA R DILUTJ BLOOD 75562 GALI TALBERT COUNT 2 [facility] COMPLETE INC INC AUTO&AUTO DIFRNTL WBC URNLS DIP 11955 G[facility] TALBERT 2 [facility] STICK/TAB INC INC LET REAGENT AUTO MICROSCOP Y CULTURE 75043 GALI TALBERT BACTERIAL 2 [facility] INC INC QUANTTATI VE COLONY COUNT URINE CULTURE 17969 GALI TALBERT BCT 2 [facility] ISOL&PRSM INC INC PTV ID ISOLATE EA URINE CULTURE 65353 GALI TALBERT BCT 2 [facility] ISOL&PRSM INC INC PTV ID ISOLATE EA URINE AMB A0427 ISABEL [facility] SERVICE 2 AMBULANCE AMBULANCE ALS SERVICE SERVICE EMERGENCY TRANSPORT LEVEL 1 CULTURE 63253 GALI TALBERT BACTERIAL 2 [facility] INC INC QUANTTATI VE COLONY COUNT URINE URINE 52935 GALI TALBERT 2 [facility] TEST INC INC VISUAL COLOR CMPRSN METHS URNLS DIP 07865 GALI TALBERT 2 [facility] STICK/TAB INC INC LET REAGENT AUTO MICROSCOP Y SUSCEPTIB 64159 GALI TALBERT LTY STDY 2 [facility] ANTIMICRB INC INC IAL MICRO/AGA R DILUTJ GROUND A0425 ISABEL HALL MILEAGE 2 AMBULANCE AMBULANCE PER SERVICE SERVICE STATUTE MILE 15042 JAMES VASQUEZ TRANSVAGI 2 MEDICAL STEFAN NAL IMAGING ASS RADIOLOGI 48523 GALI TALBERT C EXAM 1 [facility] CHEST 2 INC INC VIEWS FRONTAL&L ATERAL RADEX 60502 GALI TALBERT CLAVICLE 1 [facility] COMPLETE INC INC OBSERVATI 46474 [facility] HARPEL ON CARE 1 PHYSICIAN JADEN DISCHARGE GROUP PCC [facility]NA[facility]EM[facility] T HOSPITAL G0378 GALI TALBERT OBSERVATI 1 [facility] ON INC INC SERVICE PER HOUR BLOOD 64195 GALI TALBERT COUNT 1 [facility] HEMOGLOBI INC INC N BLOOD 62060 GALI TALBERT COUNT 1 [facility] [place] [address] [facility] ELIZABETH VAN SURG 1 DAVIAN & PATHOLOGY DUBILIER GROSS&KAVYA ROSCOPIC EXAM TX PROC G0238 GALI TALBERT IMPRV 1 [facility] RESP INC INC FUNCT NOT G0237 [facility] G0378 GALI TALBERT OBSERVATI 1 [facility] ON INC INC SERVICE PER HOUR URNLS DIP 78426 GALI TALBERT 1 [facility] STICK/TAB INC INC LET REAGENT AUTO MICROSCOP Y CULTURE 16653 GALI TALBERT BACTERIAL 1 [facility] INC INC QUANTTATI VE COLONY COUNT URINE ANESTHESI 38944 COMMUNITY GOYAL JIM A VAGINAL 1 ANESTH OF THE HYSTERECT BLUE PURA INCL BIOPSY VAGINAL 35603 C SAGRARIO DIANA HYSTERECT 1 LEBRON NEVES MD PSC UTERUS 250 GM/< SUTURE OF 5781 GALI TALBERT 1 [facility] LACERATIO INC INC N OF BLADDER OTHER 6859 GALI TALBERT VAGINAL 1 [facility] HYSTERECT INC INC PURA CHEMOTX 36052 GALI TALBERT ADMN 1 [facility] SUBQ/IM INC INC NON-HORMO NAL ANTI-EMERITA SBSQ 90383 A [facility] 1 INOCENCIO JARAMILLO TAIWO CARE/DAY PSC 15 MINUTES GLUC BLD 68025 GALI TALBERT GLUC MNTR 1 [facility] DEV INC [place] [address] GALI TALBERT INFUSION 1 [facility] THERAPY/P INC INC ROPHYLAXI S /DX 1ST TO 1 HR URNLS DIP 30390 G[facility]I TALBERT 1 [facility] STICK/TAB INC INC LET REAGENT AUTO MICROSCOP Y BLOOD 29172 GALI TALBERT COUNT 1 [facility] COMPLETE INC INC AUTO&AUTO DIFRNTL WBC URINE 18716 G[facility]I TALBERT 1 [facility] TEST INC INC VISUAL COLOR CMPRSN METHS CYTP 52828 NATALIE ESTRADA SLCTV 1 LABORATOR LABORATOR CELL IES INC IES INC ENHANCEME NT INTERP[place] XCP[place] [address] [facility] HARPEL TRANSVAGI 1 PHYSICIAN JADEN NAL GROUP PCC SMR PRIM 00418 [facility] HARPEL SRC WET 1 PHYSICIAN JADEN MOUNT GROUP NFCT AGT PCC AMB A0427 [facility] SERVICE 1 AMBULANCE AMBULANCE ALS SERVICE SERVICE EMERGENCY TRANSPORT LEVEL 1 ECG 13910 GALI FRANCISCO ROUTINE 1 [facility] W/LEAST P 12 LDS I&R ONLY ALS A0398 [facility] ROUTINE 1 AMBULANCE AMBULANCE DISPOSABL SERVICE SERVICE E SUPPLIES GROUND A0425 [facility] MILEAGE 1 AMBULANCE AMBULANCE PER SERVICE SERVICE STATUTE MILE BLOOD 38127 GALI GALI COUNT 1 [facility] COMPLETE INC INC AUTO&AUTO DIFRNTL WBC RADIOLOGI 24143 [facility] JEAN-PIERRE C 1 MEDICAL NICOLÁS EXAMINATI IMAGING ON KNEE 3 ASS VIEWS URNLS DIP 69075 GALI GALI 0 [facility] STICK/TAB INC INC LET REAGENT AUTO MICROSCOP Y RADEX 94414 [facility] PEDRO SPINE 0 MEDICAL STEFAN LUMBOSACR IMAGING AL ASS MINIMUM 4 VIEWS SEDIMENTA 84981 GALI TALBERT TION RATE 0 [facility] RBC INC INC NON-AUTOM ATED IADNA 35603 GALI TALBERT CHLAMYDIA 0 [facility] INC INC TRACHOMAT IS AMPLIFIED PROBE TQ SMR PRIM 79028 GALI TALBERT SRC WET 0 [facility] MOUNT INC INC NFCT AGT CUL BACT 39037 GALI TALBERT AEROBIC 0 [facility] ADDL INC INC METHS DEFINITIV E EA ISOL URINE 84606 G[facility]I TALBERT 0 [facility] TEST INC INC VISUAL COLOR CMPRSN METHS URNLS DIP 14554 G[facility]I TALBERT 0 [facility] STICK/TAB INC INC LET REAGENT AUTO MICROSCOP Y BLOOD 21098 G[facility]I TALBERT COUNT 0 [facility] COMPLETE INC INC AUTO&AUTO DIFRNTL WBC IADNA 35238 GALI TALBERT NEISSERIA 0 [facility] INC INC GONORRHOE AE AMPLIFIED PROBE TQ COMPREHEN 06203 G[facility]I TALBERT SIVE 0 [facility] METABOLIC INC INC PANEL CULTURE 68209 GALI TALBERT BACTERIAL 0 [facility] BLOOD INC INC AEROBIC W/ID ISOLATES SUSCEPTIB 60282 GALI TALBERT LTY STDY 0 [facility] ANTIMICRB INC INC IAL MICRO/AGA R DILUTJ REMOVAL 9817 GALI TALBERT INTRALUMI 0 [facility] NAL FB INC INC FROM VAGINA W/O INCISION RADEX 87685 [facility] PEDRO FOOT 0 MEDICAL STEFAN COMPLETE IMAGING MINIMUM 3 ASS VIEWS RADEX 97898 G[facility] TALBERT FOOT 0 [facility] COMPLETE INC INC MINIMUM 3 VIEWS APPLICATI 9354 GALI TALBERT ON OF 0 [facility] [place] [address] SARI WAHLEY 0 EMERGENCY KAVYA METATARSA SERVICES L FRACTURE W/O MANIPULAT ION ECG 01792 GALI TALBERT ROUTINE 8 [facility] ECG INC INC W/LEAST 12 LDS TRCG ONLY W/O I&R RADIOLOGI 67659 [facility] Supriya MOREJON EXAM 8 MEDICAL DARIEN P CHEST 2 IMAGING VIEWS ASSOCIATE FRONTAL&L S ATERAL Encounters Encounter Start End Date Code Location Performer Type Date EMERGENCY 98584 SARI JULIAN 2 2 EMERGENCY KAVYA DEPARTMEN SERVICES T VISIT MODERATE SEVERITY EMERGENCY 49081 GALI 2 2 [facility] DEPARTMEN INC T VISIT LOW/MODER SEVERITY HOSPITAL GALI - 2 2 [facility] OUTPATIEN INC T EMERGENCY 47029 CELLAROSI CELLAROSI 2 2 - YORBA - YORBA DEPARTMEN PAT PAT T VISIT HIGH/URGE NT SEVERITY PERIODIC 67711 [facility] PREVENTIV 2 2 JADEN E MED EST PATIENT 18-39 YRS HOSPITAL GALI - 2 2 [facility] OUTPATIEN INC T HOSPITAL GALI - 2 2 [facility] OUTPATIEN INC T OFFICE 23334 HARPEL HARPEL OUTPATIEN 2 2 JADEN JADEN T VISIT 15 MINUTES HOSPITAL GALI - 2 2 [facility] OUTPATIEN [facility] T OFFICE 11260 HARPEL HARPEL OUTPATIEN 2 2 JADEN JADEN T VISIT 15 MINUTES OFFICE 44478 SAHRA SAHRA OUTPATIEN 2 2 TAIWO TAIWO T VISIT 15 MINUTES EMERGENCY 69283 GALI 2 2 [facility] INC T VISIT LOW/MODER SEVERITY EMERGENCY 21487 SARI JULIAN 2 2 EMERGENCY [facility] DEPARTMEN SERVICES T VISIT MODERATE SEVERITY HOSPITAL GALI - 2 2 [facility] OUTPATIEN [facility] T HOSPITAL GALI - 2 2 [facility] T EMERGENCY 41320 SARI JULIAN 2 2 EMERGENCY [facility] DEPARTMEN SERVICES T VISIT HIGH/URGE NT SEVERITY EMERGENCY 11918 [facility] 2 [facility] LOW/MODER SEVERITY EMERGENCY 30662 GALI 2 2 [facility] DEPARTMEN INC T VISIT LOW/MODER SEVERITY EMERGENCY 73283 YUDITH ZURITA 2 2 III JIM III [facility] DEPARTMEN T VISIT HIGH/URGE NT SEVERITY HOSPITAL GALI - 2 2 [facility] OUTPATIEN INC T EMERGENCY 69406 GALI 2 2 [facility] INC T VISIT MODERATE SEVERITY HOSPITAL GALI - 2 2 [facility] OUTPATIEN INC T HOSPITAL GALI - 2 2 [facility] OUTPATIEN INC T OFFICE 29171 HARPEL HARPEL OUTPATIEN 2 2 JADEN JADEN T VISIT 15 MINUTES EMERGENCY 28801 GALI 2 2 [facility] INC T VISIT HIGH/URGE NT SEVERITY HOSPITAL GALI - 2 2 [facility] OUTPATIEN INC T EMERGENCY 25153 TURCIOS RENE TURCIOS RENE DEPT 2 2 VISIT HIGH SEVERITY& THREAT FUN OFFICE 38636 [facility] HARPEL OUTPATIEN 2 2 JADEN JADEN T VISIT 15 MINUTES HOSPITAL GALI - 2 2 [facility] T OFFICE 18923 FELIZ FLOYDPEL OUTPATIEN 2 2 DENILSON STANLEY T [facility]ISIT 15 MINUTES HOSPITAL GALI - 1 1 [facility] T EMERGENCY 02785 GALI 1 1 [facility] T VISIT LOW/MODER [facility]VERITY HOSPITAL GALI - 1 1 [facility] T EMERGENCY 76009 GALI 1 1 [facility] T VISIT LIMITED/M INOR PROB EMERGENCY 06578 SARI ZURITA 1 1 [facility]IS[facility] MODERATE SEVERITY OFFICE 03580 [facility] HARPEL OUTPATIEN 1 1 PHYSICIAN JADEN T VISIT GROUP 15 PCC MINUTES OFFICE 88975 [facility] OUTPATIEN 1 1 PHYSICIAN JADEN T VISIT GROUP 15 PCC MINUTES OFFICE 53955 [facility] OUTPATIEN 1 1 PHYSICIAN JADEN T VISIT GROUP 15 PCC MINUTES HOSPITAL GALI - 1 1 [facility] T OFFICE 19280 A C SAHRA OUTPATIEN 1 1 INOCENCIO MARAVILLA T VISIT PSC 15 MINUTES HOSPITAL GALI - 1 1 [facility] T [facility]OSP[facility] GALI - 1 1 [facility] T OFFICE 92192 [facility] OUTPATIEN 1 1 PHYSICIAN JADEN T VISIT GROUP 15 PCC MINUTES OFFICE 08687 [facility] OUTPATIEN 1 1 PHYSICIAN JADEN T VISIT GROUP 15 PCC MINUTES HOSPITAL GALI - 1 1 [facility] T INITIAL 03726 [facility] HAR[facility] PREVENTIV 1 1 PHYSICIAN JADEN E GROUP MEDICINE PCC NEW PT AGE [id number] OFFICE 78031 A C SAHRA OUTPATIEN 1 1 INOCENCIO MARAVILLA T VISIT PSC 15 MINUTES OFFICE 77244 [facility] ENCARNACION ASHLEIGH OUTPATIEN 1 1 VISION T VISIT 10 MINUTES EMERGENCY 90840 [facility]I 1 1 [facility] T VISIT LOW/MODER SEVERITY [facility]OSPITAL GALI - 1 1 [facility] T EMERGENCY 90310 SARI JULIAN 1 1 EMERGENCY [facility] DEPARTMEN SERVICES T VISIT HIGH/URGE NT SEVERITY HOSPITAL GALI - 0 0 [facility] OUTPATIEN INC T EMERGENCY 92891 SARI DILLON 0 0 EMERGENCY [facility] DEPART[facility] SERVICES T VISIT HIGH/URGE NT SEVERITY EMERGENCY 60306 GALI 0 0 [facility] T VISIT MODERATE SEVERITY [facility]OSPITAL [facility] - 0 0 [facility] T EMERGENCY 03832 G[facility] DEPT 0 0 [facility] VISIT INC HIGH SEVERITY& THREAT FUNCJ EMERGENCY 19727 SARI JULIAN 0 0 EMERGENCY [facility] SERVICES T VISIT HIGH/URGE NT SEVERITY HOSPITAL GALI - 0 0 [facility] OUT[facility] INC T OFFICE 40120 Ellie BOCANEGRA OUTPATIPACO 0 0 INOCENCIO AREVALO T VISIT PSC 15 MINUTES OFFICE 75489 NADIA TEAGUE 0 0 INOCENCIO AREVALO T VISIT PSC 15 MINUTES HOSPITAL GALI - 0 0 [facility] EMERGENCY 03899 SARI JULIAN 0 0 EMERGENCY [facility] SERVICES T VISIT HIGH/URGE NT SEVERITY EMERGENCY 40316 GALI 0 0 [facility] T VISIT LOW/MODER SEVERITY EMERGENCY 05696 JAMES AARON, 8 8 [facility] T VISIT ON HIGH/URGE NT SEVERITY EMERGENCY 95217 GALI 8 8 [facility] T VISIT LOW/MODER SEVERITY HOSPITAL GALI - 8 8 [facility] OFFICE 293[address] Ellie SMITH 8 8 INOCENCIO Navarro NEW 30 PSC MINUTES EMERGENCY 79148 GALI COULTER, 8 8 [facility] T VISIT PROF SERV LOW/MODER SEVERITY
--- OUTSIDE RECORDS SUMMARY | 2017-03-25 22:18 | External Medical Summary Rpt | CCD ---
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 Automatic Name Role Phone A Supriya PAINTER MD PSC, A Unavailable Unavailable Supriya PAINTER MD PSC [facility] Unavailable Unavailable LABORATORIES, [facility] Unavailable Unavailable INC, [facility] Unavailable Unavailable SERVICE, [facility] Unavailable Unavailable SERVICE, [facility] CELLAROSI - YORBA Unavailable Unavailable PAT, CELLAROSI - YORBA PAT CELLAROSI - YORBA Unavailable Unavailable PAT, CELLAROSI - YORBA PAT CHIPPS DAVIAN & Unavailable Unavailable DUBILIER, CHIPPS DAVIAN [facility] DUBILIER PEDRO STEFAN, Unavailable Unavailable PEDRO STEFAN [facility], Unavailable Unavailable [facility] [place] [place], [facility] [place] [facility] [place] [facility] Unavailable Unavailable [facility] Unavailable Unavailable IESHA KAVYA, IESHA Unavailable Unavailable KAVYA CORY KAVYA, CORY KAVYA Unavailable Unavailable TURCIOS RENE, TURCIOS RENE Unavailable Unavailable TURCIOS RENE, TURCIOS RENE Unavailable Unavailable HARPEL JADEN, HARPEL Unavailable Unavailable JADEN HARPEL JADEN, HARPEL Unavailable Unavailable JADEN [facility] Unavailable Unavailable INC, [facility] Unavailable Unavailable HOSPITAL P, [facility], [facility] Unavailable Unavailable [facility] Unavailable Unavailable [facility], [facility] WILMA DILLON [facility] Unavailable Unavailable [facility] Un[facility] Un[facility], [facility] CLARA VALLEJO Unavailable Unavailable [facility] Unavailable Unavailable SERVICES, [facility] NOLAN FERNANDEZ, Unavailable Unavailable JEAN-PIERRE [...] SAHRA, IRINA [facility] Unavailable Unavailable [id number] # [id number], [facility] [id number] # [id number] SCHULJIMENA MARRERO, Unavailable Unavailable SCHULSTJALEN MARRERO SMALL, DAVE Navarro, SMALL, Unavailable Unavailable DAVE Navarro [facility] # Unavailable Unavailable [id number], [facility] # [id number] WEHRMAN III JIM, Unavailable Unavailable WEHRMAN III JIM WEHRMAN III JIM, Unavailable Unavailable WEHRMAN III JIM ARNOLDO AARON, Unavailable Unavailable ARNOLDO AARON CHR, LORI Unavailable Unavailable CHR PAINTER, A C, PAINTER, Unavailable Unavailable A C Purpose Continuity of Care Document - 07-31-2007 through 2016 Problems Code Diagnosis DOS Provider Status 53965 PAIN IN 12-05-2011 [place] JOINT, MEDICAL ANKLE [facility] IMAGING ASS FOOT 11155 SPRAIN AND 12-05-2011 SARI STRAIN OF EMERGENCY UNSPECIFIED SERVICES SITE OF FOOT 21184 OTHER FOOT 12-05-2011 GALI SPRAIN AND [facility] STRAIN INC 9599 INJURY 12-05-2011 [place] OTHER AND MEDICAL UNSPECIFIED IMAGING ASS UNSPECIFIED SITE 05046 UNSPECIFIED 12-04-2011 D[facility] L.P. SITE OF ANKLE SPRAIN AND STRAIN 01278 OTHER ACUTE 11-27-2011 CELLAROSI - YORBA PAT POSTOPERATI VE PAIN 5680 PERITONEAL 11-27-2011 CELLAROSI - ADHESIONS YORBA PAT 52609 ABDOMINAL 11-27-2011 CELLAROSI - PAIN RIGHT YORBA [...] HARPEL JADEN SYMPTOM ASSOC W/FEMALE GENITAL ORGANS 04715 UNSPECIFIED 09-23-2011 SAHRA TAIWO OTALGIA 462 ACUTE 09-15-2011 SARI PHARYNGITIS EMERGENCY SERVICES 6823 CELLULITIS 08-15-2011 [facility] AND ABSCESS EMERGENCY OF UPPER SERVICES ARM AND FOREARM 65051 CONTUSION 08-08-2011 WEHRMAN III OF BUTTOCK JIM 79748 OTHER 08-08-2011 [place] INJURY OF MEDICAL OTHER SITES IMAGING ASS OF TRUNK E8889 UNSPECIFIED 08-08-2011 [place] FALL [facility] 17936 ABDOMINAL 06-28-2011 TUCRIOS RENE PAIN, UNSPECIFIED SITE 23458 ABDOMINAL 06-28-2011 GALI PAIN, LEFT [facility] LOWER INC QUADRANT V8801 ACQUIRED 06-14-2011 [place] ABSENCE OF MEDICAL BOTH CERVIX IMAGING ASS AND UTERUS 90625 PAIN IN 06-09-2011 [facility] JOINT, SHOULDER REGION 9221 CONTUSION 06-09-2011 LORI CHR OF CHEST WALL 65463 CONTUSION 06-09-2011 GALI OF SHOULDER [facility] REGION INC 00640 UNSPECIFIED 02-16-2011 [facility] VIRAL [facility]ERG[facility]Y INFECTION SERVICES IN CCE & UNS SITE 4659 ACUTE URIS 02-16-2011 [facility] OF EMERGENCY UNSPECIFIED SERVICES SITE 94204 GALLSTONE 01-31-2011 [facility] ILEUS PHYSICIAN GROUP [facility] 89079 CALCU 01-31-2011 [facility] GALLBLADD PHYSICIAN W/O MENTION GROUP [facility] CHOLECYST/O BST 76005 UNSPECIFIED 01-31-2011 [facility] VAGINITIS PHYSICIAN AND GROUP [facility] VULVOVAGINI TIS 6262 EXCESSIVE 01-10-2011 [facility] OR FREQUENT PHYSICIAN GROUP [facility] MENSTRUATIO N 6160 CERVICITIS 12-31-2010 CHIPPS AND DAVIAN & ENDOCERVICI DUBILIER TIS 6268 OTH D/O 12-31-2010 GALI MENSTRUATIO [facility] N&OTH ABN INC BLEED FE GNT TRACT 9982 ACCIDENTAL 12-31-2010 GALI PUNCTURE/LA [facility] CERATION INC DURING PROC NEC 87824 UNS ADVRS 12-30-2010 A Supriya PAINTER EFF OTH RX PSC MEDICINAL&B IOLOGICAL SBSTNC 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 PAINTER CAUSING PSC ADVERSE EFFECT THERAPEUTIC USE 21574 GENERALIZED 12-22-2010 Ellie PAINTER ANXIETY PSC DISORDER V641 SURG/OTH 12-20-2010 GALI PROC NOT [facility] DONE INC BECAUSE CONTRAINDIC ATION 2180 SUBMUCOUS 11-29-2010 [facility] LEIOMYOMA PHYSICIAN OF UTERUS GROUP PCC 12674 POISONING 11-25-2010 GALI BY OTHER [facility] P ANTS 9695 POISONING 11-25-2010 GALI BY OTHER [facility] P RS 9779 POISONING 11-25-2010 [facility] UNSPECIFIED [facility]BULANCE SERVICE DRUG/MEDICI NAL SUBSTANCE 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 [facility]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 15641 CORNEAL 10-08-2010 [facility] 8449 SPRAIN&STRA 07-10-2010 SARI IN OF EMERGENCY UNSPECIFIED SERVICES SITE OF KNEE&LEG 9597 INJURY 07-10-2010 [place] OTHER&UNSPE MEDICAL CIFIED KNEE IMAGING ASS LEG ANKLE&FOOT 7242 LUMBAGO 05-04-2010 [facility] 8472 LUMBAR 05-04-2010 SARI SPRAIN AND EMERGENCY STRAIN SERVICES 9392 FOREIGN 04-01-2010 SARI BODY IN EMERGENCY VULVA AND SERVICES VAGINA 25132 CLOSED 12-31-2009 [place] FRACTURE OF MEDICAL METATARSAL IMAGING ASS BONE E9278 OTH 12-20-2009 SARI OVEREXERT&S EMERGENCY TRENUOUS&RE SERVICES PETITIVE MVMNTS/LOAD S 7336 TIETZES 03-22-2008 RAMIREZ DISEASE [place] 63256 CHEST PAIN 03-22-2008 [place] [facility]PECIF[facility] 76819 PRECORDIAL 03-22-2008 [facility] PAIN [place] 4619 ACUTE 10-30-2007 Ellie PAINTER SINUSITISMD PSC UNSPECIFIED 3829 UNSPECIFIED 07-31-2007 [facility] PROF SERV 88358 VOMITING 07-31-2007 [facility] PROF SERV 83930 DIARRHEA 07-31-2007 [facility] PROF SERV Medications Na ND Rx Da [...] 0 2. 2 WA 44 DOSS Ac MO 37 -1 -2 00 L- 95 RP [...] 11 11 EP E 9 PH HE MO AR N OP MA A CY 50 [...] 20 20 RT 3 10 11 11 NC HC 1 PH CH L AR AE 50 MA L CY S MG # TA 10 BL 05 ET 91 DI 16 01 02 0 14 7 WA 71 GA Ac CL 57 -2 -0 .0 L- 05 IN ti OF 10 9- 2- 00 MA 09 EY ve EN 20 20 20 RT 5 AC 11 11 11 NC 0 PH CH SO AR AE D [...] Procedure DOS Code Location Performer Comment RADEX 97659 GALI TALBERT FOOT 2 [facility] COMPLETE INC INC MINIMUM 3 VIEWS CRTCHS E0114 [facility] UNDARM 2 OTH THAN WOOD PAIR PAD TIP&HNDGR IP SURGICAL L3260 [facility] BOOT/SHOE 2 EACH URINLS 88374 HARPEL HARPEL DIP 2 JADEN JADEN STICK/TAB LET REAGNT NON-AUTO MICRSCPY CULTURE 72169 HARPEL HARPEL CHLAMYDIA 2 JADEN JADEN ANY SOURCE CYTP C/V 57469 BIO BIO AUTO THIN 2 REFERNCE REFERNCE LYR LABORATOR LABORATOR PREPJ SCR IES IES MNL RESCR PHYS IADNA 15346 HARPEL HARPEL NEISSERIA 2 JADEN JADEN GONORRHOE AE DIRECT PROBE TQ IADNA 01778 BIO BIO NEISSERIA 2 REFERNCE REFERNCE LABORATOR LABORATOR GONORRHOE IES IES AE AMPLIFIED PROBE TQ IADNA NOS 27684 BIO BIO 2 REFERNCE REFERNCE AMPLIFIED LABORATOR LABORATOR PROBE TQ IES IES EACH ORGANISM IADNA 92970 BIO BIO CHLAMYDIA 2 REFERNCE REFERNCE LABORATOR LABORATOR TRACHOMAT IES IES [place] [address] PATHOLOGY CORY KAVYA SURG 2 & PATHOLOGY CYTOLOGY LAB GROSS&KAVYA ROSCOPIC EXAM UNLISTED 57562 GALI TALBERT LAPAROSCO 2 [facility] PIC PX INC INC ABD PERTONEUM & OMENTUM BLOOD 93687 GALI TALBERT COUNT 2 [facility] HEMATOCRI INC INC T ANESTHESI 09151 COMMUNITY TERRIE WILL A 2 ANESTH INTRAPERI OF THE TONEAL BLUE LOWER ABD W/LAPS NOS LAPAROSCO 13883 GALI TALBERT PY W/RMVL 2 [facility] ADNEXAL INC INC STRUCTURE S BLOOD 74733 GALI TALBERT COUNT 2 [facility] HEMOGLOBI INC INC N LAPAROSCO 38578 HARPEL HARPEL PY 2 JADEN JADEN W/LYSIS OF ADHESIONS BLOOD 20148 GALI TALBERT COUNT 2 [facility] COMPLETE INC INC AUTO&AUTO DIFRNTL WBC URNLS DIP 82625 GALI TALBERT 2 [facility] STICK/TAB INC [place] [address] GALI TALBERT TRANSVAGI 2 [facility] [place] [address] GALI TALBERT STREPTOCO 2 [facility] CCUS INC INC GROUP A IAADI 79031 GALI TALBERT INFLUENZA 2 [facility] B VIRUS INC INC IAADI 14099 GALI TALBERT INFFLUENZ 2 [facility] A A VIRUS INC INC CUL BACT 66104 GALI TALBERT XCPT 2 [facility] URINE INC INC BLOOD/STO OL AEROBIC ISOL CUL BACT 03269 GALI TALBERT AEROBIC 2 [facility] ADDL INC INC METHS DEFINITIV E EA ISOL SUSCEPTIB 25572 GALI TALBERT ILITY 2 [facility] STUDY INC INC ANTIMICRO BIAL DISK METHOD INCISION 19321 SARI JULIAN & 2 EMERGENCY KAVYA DRAINAGE SERVICES ABSCESS COMPLICAT ED/MULTIP LE RADEX 37875 GALI TALBERT SACRUM & 2 [facility] COCCYX INC INC MINIMUM 2 VIEWS BLOOD 48315 GALI TALBERT COUNT 2 [facility] COMPLETE INC INC AUTO&AUTO DIFRNTL WBC ANESTHESI 26350 COMMUNITY GOYAL JIM A 2 ANESTH INTRAPERI OF THE TONEAL BLUE LOWER ABD W/LAPS NOS LAPAROSCO 96734 HARPEL HARPEL PY 2 JADEN JADEN W/LYSIS OF ADHESIONS SUSCEPTIB 03483 GALI TALBERT LTY STDY 2 [facility] ANTIMICRB INC INC IAL MICRO/AGA R DILUTJ BLOOD 14317 GALI TALBERT COUNT 2 [facility] COMPLETE INC INC AUTO&AUTO DIFRNTL WBC URNLS DIP 03289 GALI TALBERT 2 [facility] STICK/TAB INC INC LET REAGENT AUTO MICROSCOP Y CULTURE 09861 GALI TALBERT BACTERIAL 2 [facility] INC INC QUANTTATI VE COLONY COUNT URINE CULTURE 03611 GALI TALBERT BCT 2 [facility] ISOL&PRSM INC INC PTV ID ISOLATE EA URINE CULTURE 92184 GALI TALBERT BCT 2 [facility] ISOL&PRSM INC INC PTV ID ISOLATE EA URINE AMB A0427 ISABEL [facility] SERVICE 2 AMBULANCE AMBULANCE ALS SERVICE SERVICE EMERGENCY TRANSPORT LEVEL 1 CULTURE 38781 GALI TALBERT BACTERIAL 2 [facility] INC INC QUANTTATI VE COLONY COUNT URINE URINE 88785 GALI TALBERT 2 [facility] TEST INC INC VISUAL COLOR CMPRSN METHS URNLS DIP 83302 GALI TALBERT 2 [facility] STICK/TAB INC INC LET REAGENT AUTO MICROSCOP Y SUSCEPTIB 64120 GALI TALBERT LTY STDY 2 [facility] ANTIMICRB INC INC IAL MICRO/AGA R DILUTJ GROUND A0425 ISABEL HALL MILEAGE 2 AMBULANCE AMBULANCE PER SERVICE SERVICE STATUTE MILE 13257 JAMES VASQUEZ TRANSVAGI 2 MEDICAL STEFAN NAL IMAGING ASS RADIOLOGI 15216 GALI TALBERT C EXAM 1 [facility] CHEST 2 INC INC VIEWS FRONTAL&L ATERAL RADEX 82435 GALI TALBERT CLAVICLE 1 [facility] COMPLETE INC INC OBSERVATI 47971 [facility] HARPEL ON CARE 1 PHYSICIAN JADEN DISCHARGE GROUP PCC [facility]EM[facility] T HOSP[facility] G0378 GALI TALBERT OBSERVATI 1 [facility] ON INC INC SERVICE PER HOUR BLOOD 32962 GALI TALBERT COUNT 1 [facility] HEMOGLOBI INC INC N BLOOD 71322 GALI TALBERT COUNT 1 [facility] [place] [address] [facility] ELIZABETH VAN SURG 1 DAVIAN & PATHOLOGY DUBILIER GROSS&KAVYA ROSCOPIC EXAM TX PROC G0238 GALI TALBERT IMPRV 1 [facility] RESP INC INC FUNCT NOT G0237 [facility] G0378 GALI TALBERT OBSERVATI 1 [facility] ON INC INC SERVICE PER HOUR URNLS DIP 70476 GALI TALBERT 1 [facility] STICK/TAB INC INC LET REAGENT AUTO MICROSCOP Y CULTURE 29103 GALI TALBERT BACTERIAL 1 [facility] INC INC QUANTTATI VE COLONY COUNT URINE ANESTHESI 94452 COMMUNITY GOYAL JIM A VAGINAL 1 ANESTH OF THE HYSTERECT BLUE PURA INCL BIOPSY VAGINAL 13586 C SAGRARIO DIANA HYSTERECT 1 LEBRON NEVES MD PSC UTERUS 250 GM/< SUTURE OF 5781 GALI TALBERT 1 [facility] LACERATIO INC INC N OF BLADDER OTHER 6859 GALI TALBERT VAGINAL 1 [facility] HYSTERECT INC INC PURA CHEMOTX 83454 GALI TALBERT ADMN 1 [facility] SUBQ/IM INC INC NON-HORMO NAL ANTI-EMERITA SBSQ 02057 A [facility] 1 INOCENCIO JARAMILLO TAIWO CARE/DAY PSC 15 MINUTES GLUC BLD 89601 GALI TALBERT GLUC MNTR 1 [facility] DEV [place] [address] GALI TALBERT INFUSION 1 [facility] THERAPY/P INC INC ROPHYLAXI S /DX 1ST TO 1 HR URNLS DIP 21433 G[facility]I TALBERT 1 [facility] STICK/TAB INC INC LET REAGENT AUTO MICROSCOP Y BLOOD 87669 GALI TALBERT COUNT 1 [facility] COMPLETE INC INC AUTO&AUTO DIFRNTL WBC URINE 46016 GALI TALBERT 1 [facility] TEST INC INC VISUAL COLOR CMPRSN METHS CYTP 85464 NATALIE ESTRADA SLCTV 1 LABORATOR LABORATOR CELL IES INC IES INC ENHANCEME NT INTERP[place] XCP[place] [address] [facility] HARPEL TRANSVAGI 1 PHYSICIAN JADEN NAL GROUP PCC SMR PRIM 93008 [facility] HARPEL SRC WET 1 PHYSICIAN JADEN [facility] NFCT AGT PCC AMB A0427 [facility] SERVICE 1 AMBULANCE AMBULANCE ALS SERVICE SERVICE EMERGENCY TRANSPORT LEVEL 1 ECG 33658 GALI FRANCISCO ROUTINE 1 [facility] W/LEAST P 12 LDS I&R ONLY ALS A0398 [facility] ROUTINE 1 AMBULANCE AMBULANCE DISPOSABL SERVICE SERVICE E SUPPLIES GROUND A0425 [facility] MILEAGE 1 AMBULANCE AMBULANCE PER SERVICE SERVICE STATUTE MILE BLOOD 23385 GALI GALI COUNT 1 [facility] COMPLETE INC INC AUTO&AUTO DIFRNTL WBC RADIOLOGI 30317 [place] JEAN-PIERRE C 1 MEDICAL NICOLÁS EXAMINATI IMAGING ON KNEE 3 ASS VIEWS URNLS DIP 47800 GALI GALI 0 [facility] STICK/TAB INC INC LET REAGENT AUTO MICROSCOP Y RADEX 94601 [place] PEDRO SPINE 0 MEDICAL STEFAN LUMBOSACR IMAGING AL ASS MINIMUM 4 VIEWS SEDIMENTA 29612 GALI TALBERT TION RATE 0 [facility] RBC INC INC NON-AUTOM ATED IADNA 95278 GALI TALBERT CHLAMYDIA 0 [facility] INC INC TRACHOMAT IS AMPLIFIED PROBE TQ SMR PRIM 27564 GALI TALBERT SRC WET 0 [facility] MOUNT INC INC NFCT AGT CUL BACT 87815 GALI TALBERT AEROBIC 0 [facility] ADDL INC INC METHS DEFINITIV E EA ISOL URINE 45406 GALI TALBERT 0 [facility] TEST INC INC VISUAL COLOR CMPRSN METHS URNLS DIP 38346 G[facility]I TALBERT 0 [facility] STICK/TAB INC INC LET REAGENT AUTO MICROSCOP Y BLOOD 56935 GALI TALBERT COUNT 0 [facility] COMPLETE INC INC AUTO&AUTO DIFRNTL WBC IADNA 62314 GALI TALBERT NEISSERIA 0 [facility] INC INC GONORRHOE AE AMPLIFIED PROBE TQ COMPREHEN 02331 GALI TALBERT SIVE 0 [facility] METABOLIC INC INC PANEL CULTURE 70878 GALI TALBRET BACTERIAL 0 [facility] BLOOD INC INC AEROBIC W/ID ISOLATES SUSCEPTIB 63139 GALI TALBERT LTY STDY 0 [facility] ANTIMICRB INC INC IAL MICRO/AGA R DILUTJ REMOVAL 9817 GALI TALBERT INTRALUMI 0 [facility] NAL FB INC INC FROM VAGINA W/O INCISION RADEX 59460 [place] PEDRO FOOT 0 MEDICAL STEFAN COMPLETE IMAGING MINIMUM 3 ASS VIEWS RADEX 82548 GALI TALBERT FOOT 0 [facility] COMPLETE INC INC MINIMUM 3 VIEWS APPLICATI 9354 GALI TALBERT ON OF 0 [facility] [place] [address] SARI WAHLEY 0 EMERGENCY KAVYA METATARSA SERVICES L FRACTURE W/O MANIPULAT ION ECG 26843 GALI TALBERT ROUTINE 8 [facility] ECG INC INC W/LEAST 12 LDS TRCG ONLY W/O I&R RADIOLOGI 05504 [place] Supriya MOREJON EXAM 8 MEDICAL DARIEN P CHEST 2 IMAGING VIEWS ASSOCIATE FRONTAL&L S ATERAL Encounters Encounter Start End Date Code Location Performer Type Date EMERGENCY 11547 SARI JULIAN 2 2 EMERGENCY KAVYA DEPARTMEN SERVICES T VISIT MODERATE SEVERITY EMERGENCY 63997 GALI 2 2 [facility] DEPARTMEN INC T VISIT LOW/MODER SEVERITY HOSPITAL GALI - 2 2 [facility] OUTPATIEN INC T EMERGENCY 93081 CELLAROSI CELLAROSI 2 2 - YORBA - YORBA DEPARTMEN PAT PAT T VISIT HIGH/URGE NT SEVERITY PERIODIC 16501 HARPE[facility] PREVENTIV 2 2 JADEN E MED EST PATIENT 18-39 YRS HOSPITAL GALI - 2 2 [facility] OUTPATIEN INC T HOSPITAL GALI - 2 2 [facility] OUTPATIEN INC T OFFICE 89761 HARPEL HARPEL OUTPATIEN 2 2 JADEN JADEN T VISIT 15 MINUTES HOSPITAL GALI - 2 2 [facility] OUTPATIEN [facility] T OFFICE 38786 HARPEL HARPEL OUTPATIEN 2 2 JADEN JADEN T VISIT 15 MINUTES OFFICE 22762 SAHRA SAHRA OUTPATIEN 2 2 TAIWO TAIWO T VISIT 15 MINUTES EMERGENCY 36701 GALI 2 2 [facility] T VISIT LOW/MODER SEVERITY EMERGENCY 02318 SARI JULIAN 2 2 EMERGENCY [facility] DEPARTMEN SERVICES T VISIT MODERATE SEVERITY HOSPITAL GALI - 2 2 [facility] T HOSPITAL GALI - 2 2 [facility] T EMERGENCY 80216 SARI JULIAN 2 2 EMERGENCY [facility] DEPARTMEN SERVICES T VISIT HIGH/URGE NT SEVERITY EMERGENCY 16259 [facility] 2 2 [facility]IS[facility] LOW/MODER SEVERITY EMERGENCY 80689 GALI 2 2 [facility] DEPARTMEN INC T VISIT LOW/MODER SEVERITY EMERGENCY 33578 YUDITH ZURITA 2 2 III JIM III [facility] DEPARTMEN T VISIT HIGH/URGE NT SEVERITY HOSPITAL GALI - 2 2 [facility] OUTPATIEN INC T EMERGENCY 75910 GALI 2 2 [facility] T VISIT MODERATE SEVERITY HOSPITAL GALI - 2 2 [facility] OUTPATIEN INC T HOSPITAL GALI - 2 2 [facility] OUTPATIEN INC T OFFICE 40449 HARPEL HARPEL OUTPATIEN 2 2 JADEN JADEN T VISIT 15 MINUTES EMERGENCY 34615 GALI 2 2 [facility] T VISIT HIGH/URGE NT SEVERITY HOSPITAL GALI - 2 2 [facility] OUTPATIEN INC T EMERGENCY 06173 TURCIOS RENE TURCIOS RENE DEPT 2 2 VISIT HIGH SEVERITY& THREAT FUN OFFICE 44722 HARPEL HARPEL OUTPATIEN 2 2 JADEN JADEN T VISIT 15 MINUTES HOSPITAL GALI - 2 2 [facility] T OFFICE 86540 FELIZ FLOYDPEL OUTPATIEN 2 2 DENISLON STANLEY T VISIT 15 MINUTES HOSPITAL GALI - 1 1 [facility] T EMERGENCY 28381 GALI 1 1 [facility] T VISIT LOW/MODER SEVERITY HOSPITAL GALI - 1 1 [facility] T EMERGENCY 31866 GALI 1 1 [facility] T [facility]ISIT LIMITED/M INOR PROB EMERGENCY 14721 SARI ZURITA 1 1 EMERGENCY III [facility] T VISIT MODERATE SEVERITY OFFICE 16735 [facility] 1 1 [facility] T VISIT GROUP 15 PCC MINUTES OFFICE 93156 [facility] 1 1 [facility] T VISIT GROUP 15 PCC MINUTES OFFICE 48998 [facility] 1 1 [facility] T VISIT GROUP 15 PCC MINUTES HOSPITAL [facility] - 1 1 [facility] T OFFICE 65081 [facility] OUTPATI[facility] 1 1 [facility] MARAVILL[facility] T VISIT PSC 15 MINUTES HOSPITAL G[facility] - 1 1 [facility] T [facility] - 1 1 [facility] T OFFICE 47880 [facility] 1 1 [facility] T VISIT GROUP 15 PCC MINUTES OFFICE 57530 [facility] 1 1 [facility] T VISIT GROUP 15 PCC MINUTES HOSPITAL GALI - 1 1 [facility] T INITIAL 99183 [facility] PREVENTIV 1 1 PHYSICIAN JADEN E GROUP MEDICINE PCC NEW PT AGE 18-39YRS OFFICE 52216 A [facility] OUTPATIEN 1 1 INOCENCIO MARAVILLA T VISIT PSC 15 MINUTES OFFICE 14251 [facility] OUT[facility] 1 1 VISION T VISIT 10 MINUTES EMERGENCY 46086 GALI 1 1 [facility] T VISIT LOW/MODER SEVERITY HOSPITAL GALI - 1 1 [facility] T EMERGENCY 94089 SARI JULIAN 1 1 EMERGENCY [facility] DEPARTMEN SERVICES T VISIT HIGH/URGE NT SEVERITY HOSPITAL GALI - 0 0 [facility] OUTPAT[facility] INC T EMERGENCY 22811 SARI DILLON 0 0 EMERGENCY [facility] DEPARTMEN SERVICES T VISIT HIGH/URGE NT SEVERITY EMERGENCY 91228 GALI 0 0 [facility] T VISIT MODERATE SEVERITY [facility]OSPITAL G[facility] - 0 0 [facility] INC T EMERGENCY 80296 G[facility]I DEPT 0 0 [facility] VISIT INC HIGH SEVERITY& THREAT [facility] EMERGENCY 70190 SARI JULIAN 0 0 EMERGENCY [facility] SERVICES T VISIT HIGH/URGE NT SEVERITY HOSPITAL AGLI - 0 0 [facility] T OFFICE 62815 Ellie BOCANEGRA OUTPATIPACO 0 0 INOCENCIO AREVALO T VISIT PSC 15 MINUTES OFFICE 99182 NADIA TEAGUE 0 0 INOCENCIO AREVALO T VISIT PSC 15 MINUTES HOSPITAL GALI - 0 0 [facility] OUT[facility]EN [facility] EMERGENCY 05111 SARI JULIAN 0 0 EMERGENCY [facility] SERVICES T VISIT HIGH/URGE NT SEVERITY EMERGENCY 55902 GALI 0 0 [facility] T VISIT LOW/MODER SEVERITY EMERGENCY 24621 JAMES AARON, 8 8 [facility] T VISIT ON HIGH/URGE NT SEVERITY EMERGENCY 04233 GALI 8 8 [facility] T VISIT LOW/MODER SEVERITY HOSPITAL GALI - 8 8 [facility] OUTPATIEN [facility] OFFICE 37537 Ellie SMITH 8 8 INOCENCIO Navarro NEW 30 PSC MINUTES EMERGENCY 38632 GALI COULTER, 8 8 [facility] T VISIT PROF SERV LOW/MODER SEVERITY
--- OUTSIDE RECORDS SUMMARY | 2017-03-25 22:19 | External Medical Summary Rpt ---
Author Author TEJAS Casarez, TEJAS [employer] Organization [employer] Address Unknown Phone Unavailable Results CBC W Auto Differential panel in Blood Observa Value Referen Units Interpr Notes Date tion ce etation Range Basophils 0 - 0.2 K/MM3 Normal No Sep 15 informati 2016 [#/volume on in 11:38 PM ] in source Blood by data Automated count Basophils 0.1 - 2.0 % Normal No Sep 15 /100 informati 2016 leukocyte on in 11:38 PM s in source Blood by data Automated count Eosinophi 0.0 - 0.4 K/mm3 Normal No Sep 15 ls informati 2016 [#/volume on in 11:38 PM ] in source Blood by data Automated count Eosinophi 0.1 - % Normal No Sep 15 ls/100 12.0 informati 2016 leukocyte on in 11:38 PM s in source Blood by data Automated count Granulocy 1.8 - 7.8 K/mm3 Normal No Sep 15 jenna inform2016 [#/volume on in 11:38 PM ] in source Blood by data Automated count Granulocy 37.0 - % Normal No Sep 15 jenna/100 80.0 informati 2016 leukocyte on in 11:38 PM s in source Blood by data Automated count Hematocri 37.0 - % Normal No Sep 15 t [Volume 47.0 informati 2016 on in 11:38 PM Fraction] source of Blood data Hemoglobi 12.2 - g/dL Normal No Sep 15 n 16.2 informati 2016 [Mass/vol on in 11:38 PM ume] in source Blood data Lymphocyt 0.7 - 4.5 K/mm3 Normal No Sep 15 es informati 2017 [#/volume on in 11:38 PM ] in source Unspecifi data ed specimen by Automated count Lymphocyt 10 - 50.0 % Normal No Sep 15 es informati 2017 [#/volume on in 11:38 PM ] in source Unspecifi data ed specimen by Automated count Erythrocy 27 - 31.2 pg Normal No Sep 15 te mean informati 2017 corpuscul on in 11:38 PM ar source hemoglobi data n [Entitic mass] Erythrocy 31.8 - g/dl Normal No Sep 15 te mean 35.4 inform2016 corpuscul on in 11:38 PM ar source hemoglobi data n concentra tion [Mass/vol ume] by Automated count Erythrocy 82.2 - fl Normal No Sep 15 te mean 97.8 inform2016 corpuscul on in 11:38 PM ar volume source [Entitic data volume] by Automated count Monocytes 0.1 - 1.0 K/mm3 Normal No Sep 15 inform2016 [#/volume on in 11:38 PM ] in source Blood by data Automated count Monocytes 1.7 - 9.3 % Normal No Sep 15 /100 inform 2017 leukocyte on in 11:38 PM s in source Blood by data Automated count Platelet 7.4 - fl Normal No Sep 15 mean 10.4 inform2016 volume on in 11:38 PM [Entitic source volume] data in Blood by Automated count Platelets 142 - 424 K/mm3 Normal No Sep 15 inform2016 [#/volume on in 11:38 PM ] in source Blood data Erythrocy 4.2 - 5.4 M/mm3 Normal No Sep 15 jenna inform 2017 [#/volume on in 11:38 PM ] in source Amniotic data fluid Erythrocy 11.5 - % Normal No Sep 15 te 17.5 inform2016 distribut on in 11:38 PM ion width source [Entitic data volume] by Automated count Leukocyte 4.8 - K/MM3 Normal No Sep 15 s 10.8 inform2016 [#/volume on in 11:38 PM ] in source Blood data Erythrocyte sedimentation rate by Westergren method Observa Value Referen Units Interpr Notes Date tion ce etation Range Erythrocy 0 - 20 mm/hr Normal No Sep 15 te 2016 sedimenta on in 11:38 PM tion rate source by data Westergre n method Comprehensive metabolic 2000 panel in Serum or Plasma Observa Value Referen Units Interpr Notes Date tion ce etation Range Albumin/G 1.1 - 1.8 No Normal No Sep 15 lobulin informati 2016 [Mass on in on in 11:38 PM ratio] in source source Serum or data data Plasma Albumin 3.4 - 5.0 gm/dL Normal No Sep 15 [Mass/vol informati 2017 ume] in on in 11:38 PM Serum or source Plasma data Alkaline 46 - 116 U/L Normal No Sep 15 phosphata informati 2017 se on in 11:38 PM [Enzymati source c data activity/ volume] in Serum or Plasma Bilirubin 0.2 - 1.0 mg/dL Normal No Sep 15 .total informati 2017 [Mass/vol on in 11:38 PM ume] in source Serum or data Plasma Urea 7 - 18 mg/dL Normal No Sep 15 nitrogen informati 2017 [Mass/vol on in 11:38 PM ume] in source Serum or data Plasma Calcium 8.5 - mg/dL Normal No Sep 15 [Mass/vol 10.1 informati 2017 ume] in on in 11:38 PM Serum or source Plasma data Chloride 98 - 107 mmoL/L Normal No Sep 15 [Moles/vo informati 2017 lume] in on in 11:38 PM Serum or source Plasma data Carbon 21.0 - mmoL/L Normal No Sep 15 dioxide, 32.0 informati 2017 total on in 11:38 PM [Moles/vo source lume] in data Serum or Plasma Creatinin 0.55 - mg/dL Normal No Sep 15 e 1.02 informati 2017 [Mass/vol on in 11:38 PM ume] in source Serum or data Plasma Creatinin 50 - 200 ML/MIN Normal No Sep 15 e renal informati 2017 clearance on in 11:38 PM source predicted data by Cockcroft -Gault formula Estimated 59- ML/MIN No REFERENCE Sep 15 informati RANGE: 2017 glomerula on in >60 11:38 PM r source ML/MIN/1. filtratio data 73 SQUARE n rate METERSIf (GF this patient is -A merican, then multiply theresult by 1.210. Globulin 1.3 - 3.2 gm/dL High No Sep 15 [Mass/vol informati 2017 ume] in on in 11:38 PM Serum source data Glucose 74 - 106 mg/dL Normal No Sep 15 [Mass/vol informati 2017 ume] in on in 11:38 PM Serum or source Plasma data Potassium 3.5 - 5.1 mmoL/L Normal No Sep 15 informati 2017 [Moles/vo on in 11:38 PM lume] in source Serum or data Plasma Sodium 136 - 145 mmoL/L Normal No Sep 15 [Moles/vo informati 2017 lume] in on in 11:38 PM Serum or source Plasma data Aspartate 15 - 37 U/L Normal No Sep 15 informati 2017 aminotran on in 11:38 PM sferase source [Enzymati data c activity/ volume] in Serum or Plasma Alanine 12 - 78 U/L Normal No Sep 15 aminotran informati 2017 sferase on in 11:38 PM [Enzymati source c data activity/ volume] in Serum or Plasma Protein 6.4 - 8.2 gm/dL Normal No Sep 15 [Mass/vol informati 2017 ume] in on in 11:38 PM Serum or source Plasma data Urate [Mass/volume] in Serum or Plasma Observa Value Referen Units Interpr Notes Date tion ce etation Range Urate 2.6 - 7.2 mg/dL Normal No Sep 15 [Mass/vol informati 2017 ume] in on in 11:38 PM Serum or source Plasma data ABDOMEN FLAT-KUB Observa Value Referen Units Interpr Notes Date tion ce etation Range TEXT Name: No No No No Aug 26 DIAGNOS AL,DE informa informa informa informa 2014 IS LLALour tion in tion in tion in tion in 4:22 PM BATTERY niru source source source source Hospita data data data data l Phys: ENMANUEL FLOOD [id number] [facility] : 982 Age: 34 Sex: ESTRADA Chase [address] Acct: [id number] Loc: [facility] Exam Date: 015 Status: [place] [facility] [phone] Radiolo gy No: Unit No: [id number] XAM# TYPE/EX AM RESULT0 [id number] RAD/ABD OMEN FLAT-KU B HISTORY : ESWL. KUB: A frontal view of the abdomen is obtaine d. There are no prior studies for compari son. There is a Double- J right uretera l stent in place. A calcifi cation project s over the distal portion of the stent within the right lower pelvis. This calcifi cation may have a central lucency and could be a phlebol ith. A distal uretera l stone is conside red. No additio nal abnorma l calcifi cations are seen along the course of the stent. There is a 9 to 10 mm calcifi cation in the inferio r pole of the right kidney. No left intrare nal stones are identif ied. There are surgica l clips in the left lower pelvis. There is a normal bowel gas pattern . There are early degener ative changes within the lumbar facets. IMPRESS ION: 1. Right uretera l stent. Calcifi cation along the distal aspect of the stent is most likely a phlebol ith. A distal uretera l stone is conside red but thought to be less likely. 2. A 9 to 10 mm inferio r right intrare nal stone. Edited by Bob Kim REPORT SIGNED IN OTHER VENDOR SYSTEM Reporte d By: Ethan COLEMAN CC: ENMANUEL FLOOD MD Technol ogist: YOLANDA Terrazas(R) Transcr ibed Date/Ti me: (162) Transcr iptioni st: [id number] Printed Date/Ti me: (162) PAGE 1 Signed Report HGB-HCT Observa Value Referen Units Interpr Notes Date tion ce etation Range SPECIAL INSTRUCTIONS? OP CARE RM 3\.br\ HEMOGLO 10.9 12.0 - G/DL Low No Aug 26 BIN 16.0 2014 tion in 3:47 PM source data HEMATOC 33.8 37 - 47 % Low No Aug 26 RIT 2014 tion in 3:47 PM source data PTT Observa Value Referen Units Interpr Notes Date tion ce etation Range COMMENTS: OP CARE RM 3\.br\ PTT 30.5 25.5 - SEC Normal No Aug 26 37.8 2014 tion in 12:15 source PM data PT Observa Value Referen Units Interpr Notes Date tion ce etation Range COMMENTS: OP CARE RM 3\.br\ PT 12.9 11.6 - SEC Normal No Aug 26 14.2 2014 tion in 12:14 source PM data PT INR 1.00 0.87 - No Normal INR < Aug 26 VALUE 1.14 informa or = 2014 tion in 1.3 12:14 source NormalI PM data NR = 2.0 - 3.0 Therape uticINR = 2.5 - 3.5 Therape utic for patient s with mechani calpros thetic heart valve& [place] prophyl axisINR > or = 3.5 Abnorma l/[place] tedINR > or = 5.0 Critica l (requir es immedia te physici annotif ication ) BASIC METABOLIC Observa Value Referen Units Interpr Notes Date tion ce etation Range COMMENTS: OP CARE RM 3\.br\ WILLEM 9.2 8.6 - MG/DL Normal No Aug 17 10.0 inform2014 tion in 12:16 source PM data GLU 99 74 - MG/DL Normal No Aug 26 109 inform2014 tion in 12:16 source PM data CRE 0.5 0.50 - MG/DL Low No Aug 17 0.90 informa 2014 tion in 12:16 source PM data GLOMERU 152 59 - mL/min Normal No Aug 26 LAR 300 inform2014 FILT tion in 12:16 source PM data BUN 9 6 - 20 MG/DL Normal No Aug 262014 tion in 12:16 source PM data NA 141 136 - mmol/L Normal No Aug 26 145 2014 tion in 12:16 source PM data OP K 4.1 3.6 - MEQ/L Normal No Aug 26 5.0 inform2014 tion in 12:16 source PM data CL 103 98 - mmol/L Normal No Aug 26 111 2014 tion in 12:16 source PM data CO-2 25 22 - 29 mmol/L Normal No Aug 262014 tion in 12:16 source PM data ANION 13 7 - 19 mmol/L Normal No Aug 26 GAP 2014 tion in 12:16 source PM data CBC Observa Value Referen Units Interpr Notes Date tion ce etation Range COMMENTS: OP CARE RM 3\.br\ WBC 7.74 4.8 - TH/MM3 Normal No Aug 17 10.8 inform2014 tion in 12:04 source PM data RBC 4.21 4.2 - MIL/uL Normal No Aug 17 5.4 inform2014 tion in 12:04 source PM data HEMOGLO 12.3 12.0 - G/DL Normal No Aug 26 BIN 16.0 inform2014 tion in 12:04 source PM data HEMATOC 37.9 37 - 47 % Normal No Aug 26 RIT inform2014 tion in 12:04 source PM data MCV 90.0 81 - 99 FL Normal No Mar 17 informa 2015 tion in 12:04 source PM data MCH 29.2 27 - 31 PG Normal No Mar 17 informa 2014 tion in 12:04 source PM data MCHC 32.5 33 - 37 G/DL Low No Mar 17 informa 2015 tion in 12:04 source PM data RDW 13.9 11.0 - % Normal No Mar 17 14.0 informa 2014 tion in 12:04 source PM data PLATELE 358 130 - TH/MM3 Normal No Mar 17 T 400 informa 2014 tion in 12:04 source PM data MPV 10.7 10.2 - FL Normal No Mar 17 13.2 informa 2014 tion in 12:04 source PM data NEUTROP 4.49 1.5 - TH/MM3 Normal No Mar 17 HILS 7.5 informa 2014 tion in 12:04 source PM data LYMPHOC 2.82 1.1 - TH/MM3 Normal No Mar 17 YTES 4.5 informa 2014 tion in 12:04 source PM data MONOCYT 0.26 0.0 - TH/MM3 Normal No Mar 17 ES 0.9 informa 2014 tion in 12:04 source PM data EOSINOP 0.08 0.0 - TH/MM3 Normal No Mar 17 HILS 0.60 informa 2014 tion in 12:04 source PM data BASOPHI 0.09 0.0 - TH/MM3 Normal No Mar 17 LS 0.20 informa 2014 tion in 12:04 source PM data NEUTROP 58.0 50 - 70 % Normal No Mar 17 HIL % informa 2014 tion in 12:04 source PM data LYMPHOC 36.4 20 - 40 % Normal No Mar 17 YTE % informa 2014 tion in 12:04 source PM data MONOCYT 3.4 0 - 10 % Normal No Mar 17 E % informa 2014 tion in 12:04 source PM data EOSINOP 1.0 1 - 5 % Normal No Mar 17 HIL % informa 2014 tion in 12:04 source PM data BASOPHI 1.2 0 - 1 % High No Mar 17 L % informa 2014 tion in 12:04 source PM data
--- OUTSIDE RECORDS SUMMARY | 2017-03-25 22:19 | External Medical Summary Rpt ---
Author Author TEJAS Casarez, TEJAS [employer] Organization [employer] Address Unknown Phone Unavailable [...] data data l Phys: ENMANUEL FLOOD [id number] [facility] : 982 Age: 34 Sex: ESTRADA Chase [address] Acct: [id number] Loc: [facility] Exam Date: 015 Status: REG [facility] [phone] Radiolo gy No: Unit No: [id number] XAM# TYPE/EX AM RESULT0 [id number] RAD/ABD OMEN FLAT-KU B HISTORY : [...] s with mechani calpros thetic heart valve& [place] prophyl axisINR > or = 3.5 Abnorma l/[place] tedINR > or = 5.0 Critica l [...]
== END 2017-03-24 21:31 | disposition home or self-care (01) ==
LOC: UTC 20:31
DX: A08.4 Viral intestinal infection, unspecified (principal); F17.210 Nicotine dependence, cigarettes, uncomplicated; Z88.1 Allergy status to other antibiotic agents; Z88.6 Allergy status to analgesic agent

== ENCOUNTER 2017-04-29 12:40 | Emergency (ER) | payer MEDICAID ==
[~2017-04-29] VITALS: Ht 170.2 cm; Wt 87.5 kg
[~2017-04-29 12:40] MED LIST changes: +PROMETHAZINE HC25 M1 PO
--- OUTSIDE RECORDS SUMMARY | 2017-04-29 12:57 | External Medical Summary Rpt | CCD ---
Demographics Preferred Language Welsh Marital Status Unknown Advent Affiliation Unknown Race Unknown Ethnic Group Unknown Author Author , THAD LAZARO Address Unknown Phone Immunization No patient found.
--- OUTSIDE RECORDS SUMMARY | 2017-04-29 12:57 | External Medical Summary Rpt ---
Author Author TEJAS Casarez, [employer] Organization [employer] Address Unknown Phone Unavailable Results Glucose [Mass/volume] in Capillary blood by Glucometer Observa Value Referen Units Interpr Notes Date tion ce etation Range Glucose 70 - 110 mg/dl Normal No Mar 13 [Mass/vol informati 2016 9:27 ume] in on in PM Capillary source blood by data Glucomete r CBC W Auto Differential panel in Blood Observa Value Referen Units Interpr Notes Date tion ce etation Range Basophils 0 - 0.2 K/MM3 Normal No Sep 15 inform2016 [#/volume on in 11:38 PM ] in source Blood by data Automated count Basophils 0.1 - 2.0 % Normal No Sep 15 /100 inform2016 leukocyte on in 11:38 PM s in source Blood by data Automated count Eosinophi 0.0 - 0.4 K/mm3 Normal No Sep 15 ls informati 2016 [#/volume on in 11:38 PM ] in source Blood by data Automated count Eosinophi 0.1 - % Normal No Sep 15 ls/100 12.0 inform2016 leukocyte on in 11:38 PM s in [...] 4.5 K/mm3 Normal No Sep 15 es inform2016 [#/volume on in 11:38 PM ] in source Unspecifi data ed specimen by Automated count Lymphocyt 10 - 50.0 % Normal No Sep 15 es informati 2017 [#/volume on in 11:38 PM ] in source Unspecifi data ed specimen by Automated count Erythrocy 27 - 31.2 pg Normal No Sep 15 te mean inform 2017 corpuscul on in 11:38 PM ar source hemoglobi data n [Entitic mass] Erythrocy 31.8 - g/dl Normal No Sep 15 te mean 35.4 inform 2017 corpuscul on in 11:38 PM ar [...] 9.3 % Normal No Sep 15 /100 inform2016 leukocyte on in 11:38 PM s in source Blood by data Automated count Platelet 7.4 - fl Normal No Sep 15 mean 10.4 inform2016 volume on in 11:38 PM [Entitic source volume] data in Blood by Automated count Platelets 142 - 424 K/mm3 Normal No Sep 15 inform 2017 [#/volume on in 11:38 PM ] in source Blood data Erythrocy 4.2 - 5.4 M/mm3 Normal No Sep 15 jenna inform2016 [#/volume [...] 20 mm/hr Normal No Sep 15 te inform2016 sedimenta on in 11:38 PM tion rate source by data Westergre n method Comprehensive metabolic 2000 panel in Serum or Plasma Observa Value Referen Units Interpr Notes Date tion ce etation Range Albumin/G 1.1 - 1.8 No Normal No Sep 15 lobulin informati informati 2017 [Mass on in on in 11:38 PM [...] 37 U/L Normal No Sep 15 informati 2016 aminotran on in 11:38 PM sferase source [...] No No No No Aug 26 DIAGNOS VEGA informa informa informa informa 2014 IS LLALour tion in tion in tion in tion in 4:22 PM BATTERY niru source source source source Hospita data data data data l Phys: ENMANUEL FLOOD [id number] [facility] : 982 Age: 34 Sex: ESTRADA Chase [address] Acct: [id number] Loc: SDS Exam Date: 015 Status: REG [phone] Radiolo gy No: Unit No: [id number] XAM# TYPE/EX AM RESULT0 [id number] RAD/ABD OMEN FLAT-KU B HISTORY : [...] ogist: YOLANDA Terrazas(R) Transcr ibed Date/Ti me: (1621) Transcr iptioni st: [id number] Printed Date/Ti me: (1621) PAGE 1 Signed Report HGB-HCT Observa Value [...] 0.87 - No Normal INR < Aug 17 VALUE 1.14 informa or = 2015 tion in 1.3 12:14 source NormalI PM data NR = 2.0 - 3.0 Therape uticINR = 2.5 - 3.5 Therape utic for patient s with mechani calpros thetic heart valve& [place] prophyl axisINR > or = 3.5 Abnorma l/[place] tedINR > or = 5.0 Critica l (requir es immedia te physici annotif ication ) BASIC METABOLIC Observa Value Referen Units Interpr Notes Date tion ce etation Range COMMENTS: OP CARE RM 3\.br\ WILLEM 9.2 8.6 - MG/DL Normal No Aug 17 10.0 2014 tion in 12:16 source PM data GLU 99 74 - MG/DL Normal No Aug 26 109 2014 tion in 12:16 source PM data CRE 0.5 0.50 - MG/DL Low No Aug 17 0.90 2014 tion in 12:16 source PM data GLOMERU 152 59 - mL/min Normal No Aug 26 LAR 300 inform2014 FILT tion in 12:16 source PM data BUN 9 6 - 20 MG/DL Normal No Aug 17 2014 tion in 12:16 source PM data NA 141 136 - mmol/L Normal No Aug 26 145 2014 tion in 12:16 source PM data OP K 4.1 3.6 - MEQ/L Normal No Aug 17 5.0 2014 tion in 12:16 source PM data CL 103 98 - mmol/L Normal No Aug 26 111 2014 tion in 12:16 source PM data CO-2 25 22 - 29 mmol/L Normal No Aug 17 inform2014 tion in 12:16 source PM data ANION 13 7 - 19 mmol/L Normal No Aug 17 GAP informa 2014 tion in 12:16 source PM data CBC Observa Value Referen Units Interpr Notes Date tion ce etation Range COMMENTS: OP CARE RM 3\.br\ WBC 7.74 4.8 - TH/MM3 Normal No Aug 17 10.8 inform2014 tion in 12:04 source PM data RBC 4.21 4.2 - MIL/uL Normal No Aug 17 5.4 informa 2014 tion in 12:04 source PM data HEMOGLO 12.3 12.0 - G/DL Normal No Mar 17 BIN 16.0 informa 2014 tion in 12:04 source PM data HEMATOC 37.9 37 - 47 % Normal No Mar 17 RIT inform2014 tion in 12:04 source PM data MCV 90.0 81 - 99 FL Normal No Mar 17 inform2014 tion in 12:04 source PM data MCH 29.2 27 - 31 PG Normal No Mar 17 inform2014 tion in 12:04 source PM data MCHC 32.5 33 - 37 G/DL Low No Mar 17 inform2014 tion in 12:04 source PM data RDW 13.9 11.0 - % Normal No Mar 17 14.0 informa 2014 tion in 12:04 source PM data PLATELE 358 130 - TH/MM3 Normal No Mar 17 T 400 2014 tion in 12:04 source PM data MPV 10.7 10.2 - FL Normal No Mar 17 13.2 informa 2014 tion in 12:04 source PM data NEUTROP 4.49 1.5 - TH/MM3 Normal No Mar 17 HILS 7.5 inform2014 tion in 12:04 source PM data LYMPHOC 2.82 1.1 - TH/MM3 Normal No Mar 17 YTES 4.5 informa 2014 tion in 12:04 source PM data MONOCYT 0.26 0.0 - TH/MM3 Normal No Mar 17 ES 0.9 inform2014 tion in 12:04 source PM data EOSINOP 0.08 0.0 - TH/MM3 Normal No Mar 17 HILS 0.60 informa 2014 tion in 12:04 source PM data BASOPHI 0.09 0.0 - TH/MM3 Normal No Mar 17 LS 0.20 inform2014 tion in 12:04 source PM data NEUTROP 58.0 50 - 70 % Normal No Mar 17 HIL % inform2014 tion in 12:04 source PM data LYMPHOC 36.4 20 - 40 % Normal No Mar 17 YTE % inform2014 tion in 12:04 source PM data MONOCYT 3.4 0 - 10 % Normal No Mar 17 E % informa 2014 tion in 12:04 source PM data EOSINOP 1.0 1 - 5 % Normal No Mar 17 HIL % inform2014 tion in 12:04 source PM data BASOPHI 1.2 0 - 1 % High No Mar 17 L % inform2014 tion in 12:04 source PM data
--- OUTSIDE RECORDS SUMMARY | 2017-04-29 12:57 | External Medical Summary Rpt | CCD ---
Author Author , TEJAS Organization [employer] Address Unknown Phone [email or web address] Providers Care Grease Man Name Role Phone Octavio Diaz MD, Unavailable Unavailable Octavio Diaz MD Purpose Continuity of Care Document - 09-06-2012 through 2016 Problems Code Diagnosis DOS Provider Status 462 [id number] ACUTE 09-06-2012 [place] PHARYNGITIS [facility] M79.604 PAIN IN RIGHT LEG R21 RASH AND OTHER NONSPECIFIC SKIN ERUPTION R23.8 OTHER SKIN CHANGES R60.9 EDEMA, UNSPECIFIED Allergies, Adverse Reactions, Alerts Type Allergy to substance Drug Allergy Adverse Reaction to Substance Substance Reaction Severity BANDAIDS RASH/SWELLING Unknown Cephalexin L-[id number]/THROAT Severe Codeine MUSCLE SPASM Intermediate [employer] [place] Juice I-HIVES Intermediate Vital Signs 09-06-2012 13:27 Name Value Interpretat Reference Comment ion Range BP 74 mm[Hg] Diastolic BP Systolic 136 mm[Hg] Heart 94 /min Rate/Pulse O2% 97 % Respiratory 20 /min Rate Results Labs Lab Lab Date Result Refere Interp Status Commen Order Detail nces retati t Range on Glucose capillary blood glucometer (03-24-2017 21:27) Glucose = 85 70-110 complet 017 mg/dl ed capilla 21:[address] Encounters Encounter Start End Date Code Location Performer Type Date Emergency AMANDA Diaz MD (ER) 3 13:09 3 13:27 [facility]
--- OUTSIDE RECORDS SUMMARY | 2017-04-29 12:57 | External Medical Summary Rpt | CCD ---
Demographics Preferred Language Indonesian Marital Status Unknown Voodoo Affiliation Unknown Race Unknown Ethnic Group Unknown Author Author , THAD LAZARO Address Unknown Phone Immunization No patient found.
--- OUTSIDE RECORDS SUMMARY | 2017-04-29 12:57 | External Medical Summary Rpt | CCD ---
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 Name Role Phone Octavio Diaz MD, Unavailable Unavailable Octavio Diaz MD Purpose Continuity of Care Document - 09-06-2012 through 2016 Problems Code Diagnosis DOS Provider Status 462 462 ACUTE 09-06-2012 [place] PHARYNGITIS [facility] M79.604 PAIN IN RIGHT LEG R21 RASH AND OTHER NONSPECIFIC SKIN ERUPTION R23.8 OTHER SKIN CHANGES R60.9 EDEMA, UNSPECIFIED Allergies, Adverse Reactions, Alerts Type Allergy to substance Drug Allergy Adverse Reaction to Substance Substance Reaction Severity BANDAIDS RASH/SWELLING Unknown Cephalexin V-[id number]/THROAT Severe Codeine MUSCLE SPASM Intermediate [place] Juice I-HIVES Intermediate Vital Signs 09-06-2012 13:27 [...] Diaz MD (ER) 3 13:09 3 13:27 [facility]
--- OUTSIDE RECORDS SUMMARY | 2017-04-29 12:57 | External Medical Summary Rpt ---
[...] data data l Phys: ENMANUEL FLOOD [id number] [facility] : 982 Age: 34 Sex: ESTRADA Chase [address] Acct: [id number] Loc: SDS Exam Date: 015 Status: REG [phone] Radiolo gy No: Unit No: [id number] XAM# TYPE/EX AM RESULT0 [id number] RAD/ABD OMEN FLAT-KU B HISTORY : [...] s with mechani calpros thetic heart valve& [place] prophyl axisINR > or = 3.5 Abnorma l/[place] tedINR > or = 5.0 Critica l [...]
--- OUTSIDE RECORDS SUMMARY | 2017-04-29 12:57 | External Medical Summary Rpt | CCD ---
Author Author [employer] Organization [employer] Address Unknown Phone Unavailable Purpose Continuity of Care Document - through 2016
--- NOTE | 2017-04-29 13:17 | [facility]gent Treatment Center Report ---
History of Present Issue Date/Time Seen by Provider 04/29/17 1307 Visit Reason Pt arrived:Walked Presenting Problem:PT C/O COUGH AND CHEST CONGESTION SINCE Location if Accident: Onset of symptoms date/time:/ or onset unknown for:MEDICAL HX UNKNOWN Have you (or family members/close friends) recently traveled outside the [place]? N If Yes, where/when: Have you had exposure to infectious disease within the past month? TB? Other? Specify: Patient state that she has had cough and congestion now for almost a week that has continued to get worse and no improvement State that she feels like she has some chest congestion, sinus drainage and cough State that she wanted to come in and get checked and treated before it got too bad ALLERGIES Coded Allergies: cephalexin (Severe, SWELLS THROAT 02/24/17) Fish Containing Products (I-HIVES 02/24/17) orange juice (I-HIVES 02/24/17) codeine (MUSCLE SPASMS 02/24/17) Uncoded Allergies: BANDAIDS (RASH/SWELLING 11/09/11) Home Medications Active Scripts MECLIZINE HCL (Meclizine 25MG) 25 MG PO BID #60 TABLET Prov: 03/01/17 PROMETHAZINE HCL (Promethazine 25mg Tab) 25 MG PO Q6HP PRN NAUSEA AND VOMITING #20 TAB Prov: 03/24/17 History Medical History General CAD? No Angina: No VT: No Hypertension? No Hyperlipidemia? No CHF? No DVT? No PE? No COPD? No Asthma? No Anemia? No GERD? No Gastric ulcers? No GI Bleed? No Hernia? No Thyroid Problems? No Hypothyroidism? No CVA? No Seizures? No Diabetes? No Renal Insuffiency? No UTI? Yes Stones? Yes BPH? No GB Disease: No Nephritic Syndrome? No Asplenia? No Hepatitis? No Sickle Cell Disease? No Arthritis? No Migraines? No Cataracts? No Glaucoma? No MRSA? No HIV? No TB? No Anxiety? No Depression? No Cancer? No More? No Immunization HX DT/Tetanus 5-10 YRS Flu REFUSES Pneumonia NEVER Surgical Hx Previous Surgery?Y T&A D&C X 3 EGD Tubal Ligation WISDOM TEETH PARTIAL HYSTERECTOMY LAPAROSCOPY-REMOVED ADHES IONS L FALLOPIAN TUBE/OVARY Family History Family HX Diabetes No CAD Yes Hypertension Yes Hyperlipidemia Yes Cancer Yes TB No Social History Smoking Hx Smoker: Current Every Day Smoker Tobacco: Yes Type Cigarettes Packs/day < 1 Pack Alcohol Alcohol: No Review of Systems All Other Systems Reviewed and Negative Constitutional denies chills, denies fever Respiratory cough, denies shortness of breath, denies wheezing Physical Exam Vital Signs Vital Signs Date Time Temp Pulse Resp B/P Pulse O2 O2 Flow FiO2 Ox Delivery Rate 04/29 1259 97.9 90 22 126/80 97 General Appearance normal appearance, WD/WN, no apparent distress Ear, Nose, Throat throat red, irritated Respiratory Status Yes: trachea midline, chest symmetrical, non tender chest. No: respiratory distress. Lung Sounds bilateral: normal breath sounds, lungs clear. Cardiovascular normal exam, regular rate/rhythm, no peripheral edema Neurologic alert, normal exam, oriented x 3 Medical Decision Making LABS/Meds/Orders Pt receiving controlled substance in ED? No Results/Orders Orders Procedure Date/time Status CHEST(2 VIEWS-NOT PORTABLE) 04/29 1300 Active XRAY/CT/US XRAY/CT/US XRAY chest XR interpretation by reviewed by me Xray Results no infiltrates Comment Discussed with Dr Chance Departure Departure Time of Disposition 1331 Disposition DC Home or Self Care(routine) Clinical Impression Primary Impression: Bronchitis Condition STABLE Patient Instructions Cough, Sore Throat Additional Instructions * Monitor Temp. Tylenol and/or Ibuprofen as needed. ER if fever is no less than 101 despite alternating Tylenol and Ibuprofen * Encourage fluids, water, Gatorade, powerade, pedialyte if /toddler/or child * Warm salt water gargles for throat irritation *Warm fluids *Sore throat lozenges *Sleep elevated *humidifier or vaporizer Lots of rest Increase fluids, water, Gatorade, powerade Follow up IMMEDIATELY for new or worsening of symptoms OR no noticeable improvement over the next 48-72 hours. 911 immediately for any life threatening symptoms such as chest pain or difficulty breathing Discharge Counseling Counseled pt/family regarding diagnosis, test results, medications/RX, home care, follow up needs Prescriptions Current Visit Scripts Azithromycin (Zithromycin (Z-SUKUMAR) 250MG Tab) 250 MG PO DAILY #6 TAB TAKE TWO (2) TABLETS ON DAY 1, THEN ONE (1) TABLET DAY #2 THRU #5 Methylprednisolone (Medrol Dose Sukumar) 4 MG PO UD #1 SUKUMAR TAKE DIRECTED ON PACKAGING Albuterol Sulfate (Proair Hfa) 2 PUFFS IH QID #1 INH Benzonatate (Tessalon Perle) 100 MG PO TID #15 SGL at [id number]
[2017-04-29] MEDS ORDERED: ZITHROMAX Z PA250 MG PO (13:33)
[2017-04-29] MEDS ORDERED: PROAIR HFA0.09 MG/AC IH (13:33)
[2017-04-29] MEDS ORDERED: TESSALON PERLE100 M1 PO (13:33)
[2017-04-29] MEDS ORDERED: MEDROL 4MG. DOSE4 MG PO (13:33)
[2017-04-29 13:37] VITALS: BP 126/80
--- NOTE | 2017-04-30 17:20 | RADIOLOGY REPORT PS360 ---
CHEST(2 VIEWS-NOT PORTABLE) Ordering physician: MELODIE GALLEGOS APRN Age: 37 years Female INDICATION: chest symptomsCOUGH AND CHEST CONGESTION X5 DAYS Short of breath chest pain with coughing smoker. Productive cough 4 days PROCEDURE: CHEST(2 VIEWS-NOT PORTABLE) FINDINGS: PA and lateral chest from May 2011 used as comparison. There is been no significant interval change. Lungs well expanded and clear with nothing definitely acute. No pneumothorax. No pleural effusion. Heart normal size. Normal pulmonary vascularity. Hilar and mediastinal structures appear satisfactory. Chest wall unremarkable.. IMPRESSION ----- Stable chest Nothing definitely acute No focal pneumonia.
== END 2017-04-29 13:39 | disposition home or self-care (01) ==
LOC: UTC 12:40
DX: J20.9 Acute bronchitis, unspecified (principal); F17.210 Nicotine dependence, cigarettes, uncomplicated